=== PATIENT | female | born 1945 | race Caucasian/White ===

== ENCOUNTER → 2020-03-08 11:45 | Outpatient (BNVA) | payer BC, MEDICARE, SELFPAY | PROVIDERS: Family Provider Family Medicine; PCP Family Medicine; Visit Provider Orthopaedic Surgery | DX: M16.11 Unilateral primary osteoarthritis, right hip (principal) | CPT/HCPCS: 73502 ==

== ENCOUNTER 2021-01-14 00:30 | Emergency (ER) | payer MEDICARE, BC, SELFPAY ==
[2021-01-14 00:31] VITALS: PULSE 68; RESP 18; TEMP 36.6; O2SAT 98; BMI 20.9
--- NOTE | 2021-01-14 00:31 | XR_ITS ---
WS: [id number] XR wrist RT min 3V* [id number] REASON FOR EXAM: right wrist injury FINDINGS: Significant decrease in bone density. Horizontal fracture through the distal right radial metaphysis. Anterior angulation the fracture site on the lateral view. Displaced ulnar styloid fracture. Significant arthropathic change in the carpal metacarpal joint of the right thumb with subchondral sc lerosis and narrowing of the joint space. Lateral subluxation of the metacarpal. No soft tissue abnormality. XR/XR wrist RT min 3V* [id number] IMPRESSION: Right wrist fracture as above.
--- NOTE | 2021-01-14 00:31 | XR_ITS ---
WS: [id number] XR elbow RT min 3V* [id number] REASON FOR EXAM: right elbow pain FINDINGS: Joint spaces of the right elbow are intact. No focal bony abnormality. Small soft tissue ossifications adjacent to the medial epicondyle compatible with flexor tendinopathy . XR/XR elbow RT min 3V* [id number] IMPRESSION: No acute abnormality as above.
--- NOTE | 2021-01-14 00:41 | ED_ITS ---
HPI - Fall General: Chief Complaint: Fall Stated Complaint: fall Time Seen by Provider: 01/14/21 00:32 History of Present Illness: HPI Narrative: Patient is a 75-year-old female comes to the ED via EMS with right wrist and right elbow pain after fall. Patient says she was in her house today and she lost her balance and fell landing on her right arm. She states she felt like she broke something in her arm was in a lot of pain and then called EMS. Patient says her pain is an 8 out of 10 currently. Patient denies any loss of consciousness or head injury. Patient denies being on any blood thinners. Associated symptoms-after fall: Denies abdominal pain, chest pain, headache(s), hematuria or neck pain Review of Systems Const: Denies: fever(s), chills or fatigue Eyes: Denies: change in vision or eye discomfort ENMT: Denies: throat pain, odynophagia, nasal discharge or nasal congestion Card: Denies: chest pain, palpitations, edema, swelling of feet/ankles, dyspnea on exertion or orthopnea Resp: Denies: dyspnea, productive cough or non-productive cough GI: Denies: abdominal pain, nausea, vomiting, diarrhea, constipation or hematochezia : Denies: flank pain, dysuria or hematuria Musc: Reports: extremity pain (Right wrist and right elbow pain); Denies: neck pain, back pain or extremity swelling Skin/Breast: Denies: rash or new lesions Neuro: Denies: headache(s), numbness in extremities or weakness in extremities [facility] ED PFSH: Medical History Chronic pain Dyslipidemia Essential hypertension Fatigue Fibromyalgia GERD (gastroesophageal reflux disease) Family History Father Diabetes Sister Diabetes Grandmother Diabetes PATERNAL Other CAD (coronary artery disease) Social History Smoking and tobacco status: never smoked Household members: family Marital status: / Physical Exam Const: COMMON NORMALS: no acute distress, patient oriented x3, healthy appearing and alert GENERAL APPEARANCE: cooperative and comfortable HENMT: COMMON NORMALS: normocephalic HEAD & SCALP: normocephalic MOUTH: Normal oral and palatal mucosa present THROAT: posterior oropharynx normal and uvula midline Neck/C-Spine: COMMON NORMALS: supple GENERAL: Yes normal visual inspection Resp: COMMON NORMALS: normal respiratory effort, No retractions, No use of accessory muscles and clear to auscultation bilaterally AUSCULTATION: clear to auscultation bilaterally Cardio: COMMON NORMALS: regular rate, regular rhythm, S1 normal heart sound present, S2 normal heart sound present, No gallops present (Cardio), No clicks present (Cardio), No murmurs present (Cardio) and Peripheral pulses 2+ throughout RATE: regular rate RHYTHM: regular rhythm HEART SOUNDS: S1 normal heart sound present and S2 normal heart sound present PERIPHERAL PULSES: Peripheral pulses 2+ throughout GI: COMMON NORMALS: Normal to inspection, nondistended, normoactive bowel sounds present, Soft to palpation, non-tender and no masses PALPATION: Yes Soft to palpation : COMMON NORMALS: Yes no CVA tenderness BLADDER/KIDNEY EXAM: Yes no CVA tenderness Back/Pelvis: COMMON NORMALS: no CVA tenderness Extremity: GENERAL: Yes normal exam except as noted RIGHT UPPER EXTREMITY: Yes wrist (Patient presents to the ED in a splint placed by EMS.) Right wrist: Yes inspection (Mild edema but no visible deformity.), Yes palpation (Tender over radial aspect of wrist), Yes ROM (Limited due to pain) and Yes neurovascular exam (Intact, radial pulse 2+ and cap refill is normal.) Neuro: COMMON NORMALS: patient oriented x3 and moves all extremities SENSORIUM/ORIENTATION: Yes alert Skin: GENERAL SKIN EXAM: dry skin Course Vital Signs: Vital signs: Vital Signs Temperature 97.9 F 01/14/21 00:31 Pulse Rate 68 01/14/21 00:31 Respiratory Rate 18 01/14/21 00:31 Pulse Oximetry 98 01/14/21 00:31 MDM - Fall MDM Narrative: Medical decision making narrative: Patient is a 75-year-old female who comes to the ED with right wrist pain after fall. X-ray shows minimally displaced distal radial head fracture. Patient was neurovascular intact in right arm with radial pulse 2+ and cap refill normal. I placed an order with case management for patient to be referred to orthopedic doctor. Patient was placed in sugar tong splint and discharged home with a prescription of [place] 5/325 for pain. Return to ED precautions given. I told patient that c ase investments manager will contact him the next several days to set up an appointment with orthopedic doctor. Patient understood and agreed with plan. Imaging Data^: Xray Ortho: Attestation: I personally reviewed and interpreted this imaging study as follows: My impression: Right wrist x-ray?minimally displaced distal radial head fracture. Right elbow x-ray? no acute fractures or findings. Discharge Plan Discharge Patient Disposition: Home Clinical Impression: Fracture of wrist Qualifiers: Encounter type: initial encounter Fracture type: closed Laterality: right Qualified Code(s): S62.101A - Fracture of unspecified carpal bone, right wrist, initial encounter for closed fracture Condition: Stable Prescriptions: No Action mirtazapine 45 mg tablet 45 mg PO .HS RF: 0 tramadol 50 mg tablet 50 mg PO TID PRNRF: 0 montelukast [Singulair] 10 mg tablet 10 mg PO QDAY RF: 0 dicyclomine 10 mg capsule 10 mg PO BID RF: 0 hyoscyamine sulfate [Levsin] 0.125 mg tablet 0.125 mg PO QID PRN (Reason: dyspepsia) RF: 0 hydralazine 25 mg tablet 25 mg PO .COMPLEX Qty: 240 RF: 5 chlorthalidone 25 mg tablet 25 mg PO DAILY 90 Days Qty: 90 RF: 3 amlodipine 5 mg tablet 5 mg PO DAILY Qty: 90 RF: 3 atenolol 50 mg tablet 50 mg PO BID Qty: 180 RF: 3 Discharge Orders: Discharge ED (Routine); Ordered 01/14/21 Ordered By: Mitul Mendez Referrals: Irving Jha MD [Primary Care Provider] - Discharge Diet: Regular Discharge Activity: Limit activity as instructed Patient Instructions: Wrist Fracture in Adults (ED), Opioid Safety Activity Restrictions/Additional Instructions: Follow-up with medical provider as directed. Case management should be contacting you in the next several days to set up an appointment with orthopedic doctor. Take medications as prescribed. Keep splint on and dry and limit activity with right hand. Return to the ER or your medical provider if condition worsens. Please read and understand discharge instructions. If any questions, please ask. Coding Level of Care Code ED Environmental Protection Specialist for Drew Fwclaudia Exam Comprehensive
[2021-01-14] MEDS: HYDROcodone-acetaminophen 5-325 mg Tablet 1 TAB PO ×2 (00:51→03:03)
--- NOTE | 2021-01-14 02:15 | PC.NURSE ---
Attempted to talk pt into allowing her mother to be admitted since hospice could not see pt tonight and since she is unable to care for pt since she broke her R wrist tonight. Pt is POA for her mother and stated that she wanted them to both go home tonight and will just try it. Explained to pt that it is not a good idea to go home with her mother that it could be dangerous for her mothers care. Pt stated they still want to go home. Called Hospice and they are speaking with pt at this time. Hospice states pt will allow her mother to be admitted into hospital overnight.
[2021-01-14 03:23] VITALS: BP 169/70; PULSE 65; RESP 18; O2SAT 96
--- NOTE | 2021-01-14 09:46 | DCPLANNER ---
manager new product had message to schedule a follow up appointment for patient with ortho. manager new product called the ortho clinic, spoke with Sailaja, gave clinic patients information. manager new product was told that patients information would be printed and reviewed. Clinic will call patient with appointment information.
--- NOTE | 2021-01-18 07:16 | DCPLANNER ---
Patient had a follow up appointment scheduled for 01.17.[address] Stuart at [facility] - patient did attend appointment.
== END 2021-01-14 03:26 | disposition home or self-care (01) ==
PROVIDERS: Emergency Provider Physician Assistant; PCP Family Medicine
DX: S52.121A Displaced fracture of head of right radius, initial encounter for closed fracture (principal); E78.5 Hyperlipidemia, unspecified; I10 Essential (primary) hypertension; W19.XXXA Unspecified fall, initial encounter
CPT/HCPCS: 29125; 73080; 73110; 99283

== ENCOUNTER → 2021-01-17 14:58 | Outpatient (BNVA) | payer MEDICARE, BC, SELFPAY | PROVIDERS: PCP Family Medicine; Visit Provider Specialist | DX: Z01.812 Encounter for preprocedural laboratory examination (principal); Z20.822 Contact with and (suspected) exposure to COVID-19 | CPT/HCPCS: 87635 ==

== ENCOUNTER 2021-01-21 06:06 | Day surgery (SDC) | payer MEDICARE, BC, SELFPAY ==
--- NOTE | 2021-01-20 13:36 | SUR.PREOP ---
patient reports in her past, a healthcare professional told her to only get twighlight type anesthetic
[2021-01-21] VITALS (8 sets, daily range): BP systolic 147–174; BP diastolic 56–122; PULSE 60–68; RESP 17–22; TEMP 36.1–36.6; O2SAT 94–98; BMI 20.5
--- NOTE | 2021-01-21 | XR_ITS ---
WS: [id number] Exam: XR wrist RT 2V [id number] Date/Time of Exam: 01/21/2021 12:00 AM Reason For Exam: ORIF right wrist Intraoperative C-arm images of the right wrist in the AP and lateral projections are submitted for ev aluation. There is volar plate and screw fixation involving a fracture of the distal radius that is stabilized in anatomic alignment for healing. There is a fracture of the ulnar styloid. XR/XR wrist RT 2V [id number] IMPRESSION: 1. Reduction and internal orthopedic fixation involving a fracture of the dista l radius. Alignment is anatomic for healing.
--- NOTE | 2021-01-21 | SCC_ITS ---
Procedure Done: Open reduction internal fixation right comminuted intra- articular angulated distal radius fracture 96.4 seconds of fluoroscopic guidance, for a cumulative dose of 2.03 mGy, was provided to Dr. Stuart by the radiology department. C-arm images of the RIGHT wrist were saved for the patient's permanent record. [facility]
[2021-01-21] MEDS: CELEcoxib 200 mg Capsule 400 MG PO (06:30)
--- NOTE | 2021-01-21 07:00 | W.PM.OPSUD ---
Surgery/Procedure H&P Update DATE OF PROCEDURE: January 21, 2021 DATE H&P PERFORMED: 01/17/21 H&P UPDATE INFORMATION: I have reviewed H&P completed within last 30 days, I have examined patient prior to procedure and No changes to prior documentation PREOP DIAGNOSIS: Comminuted intra-articular displaced right distal radius fracture PLANNED PROCEDURE: Operation Date: 01/21/21 07:45 Proposed Procedures p ORIF right distal radius fracture (77166) S52.501A(Right) - Gaby Stuart MD Related Problem List Diagnoses (1) Closed fracture of distal ends of right radius and ulna: Qualifiers: Encounter type: initial encounter Qualified Code(s): S52.501A - Unspecified fracture of the lower end of right radius, initial encounter for closed fracture; S52.601A - Unspecified fracture of lower end of right ulna, initial encounter for closed fracture
--- NOTE | 2021-01-21 07:02 | W.PM.OPSUD ---
Surgery/Procedure H&P Update DATE OF PROCEDURE: January 21, 2021 DATE H&P PERFORMED: 01/17/21 H&P UPDATE INFORMATION: I have reviewed H&P completed within last 30 days, I have examined patient prior to procedure, No changes to prior documentation and H&P is in [facility] EMR on date indicated PREOP DIAGNOSIS: Comminuted intra-articular displaced right distal radius fracture PLANNED PROCEDURE: Operation Date: 01/21/21 07:45 Proposed Procedures p ORIF right distal radius fracture (87992) S52.501A(Right) - Gaby Stuart MD
[2021-01-21 07:05] LABS: Add Urine Microscopic? NO
[2021-01-21 07:06] LABS: Basophils # 0.1 10^3/uL (0.0-0.1); Basophils % 0.9 %; Eosinophils # 0.1 10^3/uL (0.0-0.8); Eosinophils % 1.1 %; Hematocrit 39.3 % (37.0-47.0); Hemoglobin 13.3 g/dL (11.5-15.3); Lymphocytes # 0.8 10^3/uL (0.8-4.8); Lymphocytes % 9.5 %; Mean Corpuscular HGB Conc 33.8 g/dL (30.0-36.0); Mean Corpuscular Hemoglobin 30.3 pg (28.0-34.0); Mean Corpuscular Volume 89.5 fL (81-99); Mean Platelet Volume 10.6 fL (7.4-10.4); Monocytes # 0.8 10^3/uL (0.2-0.9); Monocytes % 9.5 %; Neutrophils # 6.36 10^3/uL (1.8-7.7); Neutrophils % 78.6 %; Nucleated Red Blood Cells % 0 %; Platelet Count 314 10^3/cmm (130-400); Red Blood Count 4.39 10^6/uL (4.1-5.3); Red Cell Distribution Width 12.6 % (12.1-15.1); White Blood Count 8.1 10^3/uL (4.0-10.0)
[2021-01-21] MEDS: acetaminophen 1,000 MG/100 ML PIGGYBACK 400 MG IV (07:06)
[2021-01-21 07:21] LABS: Bilirubin Urine Neg (Negative); Blood Urine Neg (Negative); Glucose Urine UA Norm (Normal); Ketones Urine Negative (Negative); Leukocyte Esterase Urine Negative (Negative); Nitrate Urine Negative (Negative); Protein Urine Neg (Negative); Specific Gravity, Urine 1.015 (1.005-1.030); Sulfosalicylic Acid Urine Negative (Negative); Urine Appearance Clear (CLEAR); Urine Color Yellow (Yellow); Urobilinogen Urine Norm (Negative); pH Urine 8 (5-7)
[2021-01-21 07:27] LABS: Alanine Aminotransferase 13 U/L (0-33); Albumin Level 4.1 g/dL (3.5-5.2); Alkaline Phosphatase 101 IU/L (35-105); Anion Gap 14.9 (5-19); Aspartate Amino Transferase 17 U/L (0-32); Blood Urea Nitrogen 17 mg/dL (8-23); Calcium 9.2 mg/dL (8.5-10.5); Carbon Dioxide 30 mmol/L (22-29); Chloride 90 mmol/L (98-107); Creatinine Clr Calc Pharmacy 50.7539; Globulin 2.9 g/dL (1.3-4.6); Glucose 127 mg/dL (65-115); Osmolality Calculated 277 mOsm/kg (285-295); Sodium 132 mmol/L (136-145); Total Bilirubin 0.4 mg/dL (0.15-1.2)
--- NOTE | 2021-01-21 07:27 | P.ANESASSM_ITS ---
Pre-Anesthetic Assessment Pre-Anesthetic Assessment: Height/Weight: Height 1.63 m Weight 54.431 kg Temp Pulse Resp BP Pulse Ox 97 F L 68 18 147/80 97 01/21/21 07:16 01/21/21 07:16 01/21/21 07:16 01/21/21 07:16 01/21/21 07:16 Preop Diagnosis: Comminuted intra-articular displaced right distal radius fracture Proposed Procedure: Operation Date: 01/21/21 07:45 Proposed Procedures p ORIF right distal radius fracture (15162) S52.501A(Right) - Gaby Stuatr MD Was Beta Nicholas taken within 24 hours: Yes Was Clonidine taken within 24 hours: N/A Last intake: Intake Last Liquid Date 01/20/21 Last Liquid Time 20:00 Last Solid Date 01/20/21 Last Solid Time 20:00 Social: Social History: No alcohol and No tobacco Exam: Pre-Anes Outpt Exam: alert, oriented x 3, clear to auscultation bilaterally and regular rate & rhythm Airway: Submandibular: WNL Cervical ROM: WNL MP: 2 Dentition: Full History/ROS: No significant history except as noted and No significant complaints Pulmonary: Pulmonary: SOB CV/HEM: CV/HEM: HTN : : None reported Hepatic: Hepatic: None reported GI: GI: GERD Metabolic: Metabolic: None reported Musc/skel: Musc/skel: Fibromyalgia and OA/DJD Anesthetic Plan: ASA status: 2 Anesthesia: Anesthesia Evaluation and MAC Risk of > 500 ml blood loss (7ml/kg in children): No PFSH Anesthesia PFSH: Medical History (Updated 01/18/21 @ 16:14 by Gaby Stuart MD) Chronic pain Dyslipidemia Essential hypertension Fatigue Fibromyalgia GERD (gastroesophageal reflux disease) Family History Father Diabetes Sister Diabetes Grandmother Diabetes PATERNAL Other CAD (coronary artery disease) Social History Smoking and tobacco status: never smoked Household members: family Marital status: / Data Anesthesia CBC & Chem 7: 01/21/21 06:58 01/21/21 06:58 Other Labs: Laboratory Results - last 48 hr 01/21/21 01/21/21 06:40 06:58 WBC 8.1 RBC 4.39 Hgb 13.3 Hct 39.3 MCV 89.5 MCH 30.3 MCHC 33.8 RDW 12.6 Plt Count 314 MPV 10.6 H Neut % (Auto) 78.6 Lymph % (Auto) 9.5 [place] % (Auto) 9.5 Eos % (Auto) 1.1 Baso % (Auto) 0.9 Neut # (Auto) 6.36 Lymph # (Auto) 0.8 [place] # (Auto) 0.8 Eos # (Auto) 0.1 Baso # (Auto) 0.1 Nucleated RBC % (auto) 0 Nucleated RBCs # 0.0 Urine Color Yellow Urine Appearance Clear Urine pH 8 H Ur Specific [place] 1.015 Urine Protein Neg Urine Glucose (UA) Norm Urine Ketones Negative Urine Blood Neg Urine Nitrate Negative Urine Bilirubin Neg Prot Sulfosalicylic Acd Negative Urine Urobilinogen Norm Ur Leukocyte Esterase Negative Cardiac Studies: No Data to Display
[2021-01-21] MEDS: sodium chloride 0.9% 1,000 ML 30 ML IV (07:34)
[2021-01-21 07:45] LABS: Potassium 2.9 mmol/L (3.5-5.1)
--- NOTE | 2021-01-21 07:52 | ANES.PROC ---
Anesthesia Procedures Procedure/Date: 01/21/21 Nerve Block ^: Nerve Block 1: Main Anesthesia: general anesthesia Time Out Performed: Yes Consent: requested by attending/covering physician, from patient, from other, risks and benefits reviewed and patient agrees to proceed Nerve block location: axillary (R) Anesthesia monitors applied: pulse oximetry, EKG, BP cuff and oxygen Anesthetic Used: with bicarb and with decadron (4 mg) Amount of anesthesia used (mL): 30 Ultrasound used to: recognize landmarks and visualize and ID brachial plexus Nerve Stimulator Used?: No Interscalene/Femoral BLK: 2 stimuplex 22 g needle used for position and inplane approach, visualize local anesthetic spread and no vascular puncture identified Injection: neg aspiration of heme Complications: none and pain with procedure Additional Comments: Patient tolerated needle entry and needle movement poorly, no pain with injections
[2021-01-21] MEDS: midazolam 1 mg/mL INJ 5 ML 5 MG IVP (07:55)
[2021-01-21] MEDS: ceFAZolin 1,000 mg SDV 1000 MG IRRIGATION (08:18)
--- NOTE | 2021-01-21 09:39 | P.OP_ITS ---
Operative Report Date of procedure: January 21, 2021 Pre-op Diagnosis: Comminuted intra-articular displaced right distal radius fracture Post-op diagnosis: same Post-op Findings: Comminuted very unstable right intra-articular distal radius fracture Procedure Done: Open reduction internal fixation right comminuted intra- articular angulated distal radius fracture Implants: Kevon extra short narrow plate for the right volar radius Specimens removed/disposition: None Pathology: none sent Surgeon: Gaby Stuart Chemical Engineering Professor: [facility] operating room technicians Anesthesia: General (Per LMA with axillary block supplementing) Estimated blood loss (mL): 2 Tourniquet time (min): 53 Tourniquet time: At 250 mmHg IV fluids (mL): 400 Urine output (mL): 0 Urine output: No [place] Complications: None Findings: Very comminuted, angulated, impacted, displaced unstable right distal radius fracture Condition: stable Disposition: PACU (Then discharge from outpatient surgery to home) Brief History: This 75-year-old woman presented with an impacted, angulated displaced, intra- articular comminuted right distal radius fracture. Discussion was undertaken with the patient regarding appropriate treatment in the form of open reduction internal fixation. After the discussion, we both agreed the patient would benefit from open reduction internal fixation. Therefore, following the discussion, questions were answered and surgery was scheduled for the patient. Procedure: Patient was brought to the operating theater, and after undergoing adequate general anesthesia per LMA with supplemental axillary block, the patient's right upper extremity was prepped and draped in usual fashion utilizing DuraPrep. The patient had a tourniquet placed high on the arm prior to prepping and draping. Following prepping and draping, the arm was exsanguinated and the tourniquet was elevated. Total tourniquet time was 53 minutes at 250 mmHg. Prior to co mmencement of the surgical procedure, a surgical pause was performed. At the time of the surgical pause, we confirmed the site and side of surgery as well as the patient's identity and preoperative surgical markings. We also confirmed availability of equipment and appropriate preoperative IV antibiotics which was Ancef 2 g. Fluoroscopy was also brought into position so that we could visualize the fracture and hardware throughout the surgical procedure. The fracture was evaluated prior to tourniquet placement. Following elevation of the tourniquet as well as the surgical pause, an incision was made along the palmaris longus and continued down onto the volar surface of the radius. Care was taken to avoid injury throughout the surgical procedure to the median nerve as well as to the radial artery. The flexor carpi radialis was retracted medially. We were able to essentially elevate the sheath of the flexor carpi radialis. and I was able to place my finger directly onto the distal radius. For the most part, the patient did her own dissection at the time of her injury. Soft tissues were elevated off the distal radius to allow access to the fracture and also to the volar aspect of the distal radial shaft. Reduction required manipulation with a Burns and Langenbeck elevator due to impaction of the fracture. It was difficult to maintain an anatomic reduction during plate placement secondary to the gross instability. There was significant dorsal displacement of the distal fragment of the radius. Fluoroscopy was used to determine whether or not the reduction was appropriate. We were able to reduce the fracture nearly anatomically, but there was significant comminution. We then evaluated the plate and chose the Kevon extra short narrow right volar distal radius plate. The plate was attached proximally and distally without difficulty. A combination of locking and one nonlocking screws were utilized to attach the plate. We had excellent fixation and reduction of the fracture. Fluoroscopy was utilized during the procedure. Once the plate was fully attached, we had a near anatomic position to the distal radius and the distal radius was out to length. Being satisfied with position, the area was copiously irrigated. There were no fascial tissues to close, and therefore we closed the subcutaneous tissues with a combination of 2-0 and 3-0 interrupted Monocryl. Skin was closed in a subcuticular fashion with 3-0 Monocryl. This was followed by steri-strips, Xeroform gauze, 4 x 4's, and soft roll. A volar splint was placed into position over soft roll and this was wrapped in place with an Steve wrap. The tourniquet was released after 53 minutes. There were no complications. There were no specimens. Patient was returned to recovery room in a satisfactory condition. She was subsequently discharged home. She will follow-up with me as scheduled in her discharge instructions. Associated Problem List Diagnoses (1) Closed fracture of distal ends of right radius and ulna: Qualifiers: Encounter type: initial encounter Qualified Code(s): S52.501A - Unspecified fracture of the lower end of right radius, initial encounter for closed fracture; S52.601A - Unspecified fracture of lower end of right ulna, initial encounter for closed fracture
--- NOTE | 2021-01-21 10:50 | PC.NURSE ---
spoke with dr. Pathak concerning potassium. pt instructed to take potassium that she has at home.
--- NOTE | 2021-01-21 13:37 | ANE.PACU2 ---
Inpatient post-anesthesia follow up: Airway intact: Yes Vital signs: Temperature 97.3 F Pulse Rate 62 Respiratory Rate 18 Blood Pressure 155/63 Pulse Oximetry 96 Oxygen Delivery Me thod Room Air Oxygen Flow Rate 8 Fraction of Inspir ed Oxygen Hydration adequate: Yes Nausea and vomiting: No Pain level: 2 Mental status: Baseline
== END 2021-01-21 10:49 | disposition home or self-care (01) ==
PROVIDERS: PCP Family Medicine; Visit Provider Specialist
PROC: (CPT 25609; principal; 2021-01-21 07:45)
DX: S52.571A Other intraarticular fracture of lower end of right radius, initial encounter for closed fracture (principal); W19.XXXA Unspecified fall, initial encounter; Y92.009 Unspecified place in unspecified non-institutional (private) residence as the place of occurrence of the external cause; I10 Essential (primary) hypertension; K21.9 Gastro-esophageal reflux disease without esophagitis; M79.7 Fibromyalgia; M19.90 Unspecified osteoarthritis, unspecified site; E78.5 Hyperlipidemia, unspecified; Z83.3 Family history of diabetes mellitus; Z82.49 Family history of ischemic heart disease and other diseases of the circulatory system; G89.29 Other chronic pain; Z79.891 Long term (current) use of opiate analgesic
CPT/HCPCS: 25609; 36415; 64417; 73100; 76000; 76942; 80053; 81003; 85025; 96365; C1713; J0690; J1100; J2250; J2405; J2704; J2795; J3010; J3490; J7030

== ENCOUNTER → 2021-02-07 15:13 | Outpatient (BNVA) | payer MEDICARE, BC, SELFPAY | PROVIDERS: PCP Family Medicine; Visit Provider Specialist | DX: S52.601A Unspecified fracture of lower end of right ulna, initial encounter for closed fracture (principal); S52.501A Unspecified fracture of the lower end of right radius, initial encounter for closed fracture; X58.XXXA Exposure to other specified factors, initial encounter; Z46.89 Encounter for fitting and adjustment of other specified devices; S52.591D Other fractures of lower end of right radius, subsequent encounter for closed fracture with routine healing; X58.XXXD Exposure to other specified factors, subsequent encounter | CPT/HCPCS: 73110; 97760; L3982 ==

== ENCOUNTER 2021-02-07 16:36 | Outpatient (CLI) | payer MEDICARE, BC, SELFPAY | END 2021-02-07 16:37 | disposition home or self-care (01) | LOC: SPT 16:37 | PROVIDERS: PCP Family Medicine; Visit Provider Specialist | DX: Z46.89 Encounter for fitting and adjustment of other specified devices (principal); S52.591D Other fractures of lower end of right radius, subsequent encounter for closed fracture with routine healing; S52.691D Other fracture of lower end of right ulna, subsequent encounter for closed fracture with routine healing; X58.XXXD Exposure to other specified factors, subsequent encounter | CPT/HCPCS: 97760; L3982 ==

== ENCOUNTER → 2021-02-23 14:22 | Outpatient (BNVA) | payer MEDICARE, BC, SELFPAY | PROVIDERS: PCP Family Medicine; Visit Provider Specialist | DX: S52.501D Unspecified fracture of the lower end of right radius, subsequent encounter for closed fracture with routine healing (principal); S52.601D Unspecified fracture of lower end of right ulna, subsequent encounter for closed fracture with routine healing; X58.XXXD Exposure to other specified factors, subsequent encounter | CPT/HCPCS: 73110 ==

== ENCOUNTER 2021-03-01 12:43 | Outpatient (RCR) | payer MEDICARE, BC, SELFPAY | END 2021-03-28 23:59 | disposition home or self-care (01) | LOC: SOT 12:43 | PROVIDERS: PCP Nurse Practitioner Family; Referring Provider Specialist; Visit Provider Specialist | DX: S52.501D Unspecified fracture of the lower end of right radius, subsequent encounter for closed fracture with routine healing (principal); Z98.890 Other specified postprocedural states; X58.XXXD Exposure to other specified factors, subsequent encounter | CPT/HCPCS: 97110; 97140; 97166; 97530 ==

== ENCOUNTER → 2021-03-23 13:04 | Outpatient (BNVA) | payer MEDICARE, BC, SELFPAY | PROVIDERS: PCP Nurse Practitioner Family; Visit Provider Specialist | DX: S52.601D Unspecified fracture of lower end of right ulna, subsequent encounter for closed fracture with routine healing (principal); S52.501D Unspecified fracture of the lower end of right radius, subsequent encounter for closed fracture with routine healing; X58.XXXD Exposure to other specified factors, subsequent encounter; Z47.89 Encounter for other orthopedic aftercare | CPT/HCPCS: 73110 ==

== ENCOUNTER 2021-03-29 06:00 | Outpatient (RCR) | payer MEDICARE, BC, SELFPAY | END 2021-04-27 23:59 | disposition home or self-care (01) | LOC: SOT 06:00 | PROVIDERS: PCP Nurse Practitioner Family; Referring Provider Specialist; Visit Provider Specialist | DX: S52.501S Unspecified fracture of the lower end of right radius, sequela (principal); X58.XXXS Exposure to other specified factors, sequela | CPT/HCPCS: 97110; 97140 ==

== ENCOUNTER → 2021-04-27 11:24 | Outpatient (BNVA) | payer MEDICARE, BC, SELFPAY | PROVIDERS: PCP Nurse Practitioner Family; Visit Provider Specialist | DX: M16.11 Unilateral primary osteoarthritis, right hip (principal) | CPT/HCPCS: 73502 ==

== ENCOUNTER 2021-04-28 06:00 | Outpatient (RCR) | payer MEDICARE, BC, SELFPAY | END 2021-05-28 23:59 | disposition home or self-care (01) | LOC: SOT 06:00 | PROVIDERS: PCP Nurse Practitioner Family; Referring Provider Specialist; Visit Provider Specialist | DX: S52.91XD Unspecified fracture of right forearm, subsequent encounter for closed fracture with routine healing (principal); X58.XXXD Exposure to other specified factors, subsequent encounter | CPT/HCPCS: 97110; L3924 ==

== ENCOUNTER 2021-05-12 12:45 | Outpatient (CLI) | payer MEDICARE, BC, SELFPAY ==
--- NOTE | 2021-05-12 13:30 | USCV_ITS ---
Jana Rosa Age: 76 Gender: F : 1945 Exam Date: 05/12/2021 13:17 Ordering Phys: Richard Magdaleno M.D ([email or web address]) Technologist: Celine Kenney Exam Location: [facility] [place] Indication: SOB BP: 128 / 79 HR: 58 Rhythm: Sinus Technical Quality: Adequate MEASUREMENTS (Male / Female) Normal Values 2D ECHO LV Diastolic Diameter PLAX 4.1 cm 4.2 - 5.9 / 3.9 - 5.3 cm LV Systolic Diameter PLAX 2.9 cm IVS Diastolic Thickness 1.3 cm 0.6 - 1.0 / 0.6 - 0.9 cm IVS Systolic Thickness 1.2 cm LVPW Diastolic Thickness 0.7 cm 0.6 - 1.0 / 0.6 - 0.9 cm LVPW Systolic Thickness 1.0 cm LVOT Diameter 2.0 cm LV Ejection Fraction 2D Teich 56.2 % LV Ejection Fraction MOD 2C 75.6 % LV Ejection Fraction 2C AL 76.6 % LA Diameter 2.9 cm LA Width 3.5 cm LA Height 4.9 cm RA Width 3.1 cm RA Height 3.3 cm Aorta at Sinotubular Diameter 2.9 cm M-MODE LV Diastolic Diameter MM 5.1 cm 4.2 - 5.9 / 3.9 - 5.3 cm LV Systolic Diameter MM 3.2 cm LV Ejection Fraction MM Teich 65.3 % IVS Diastolic Thickness MM 0.8 cm 0.6 - 1.0 / 0.6 - 0.9 cm IVS Systolic Thickness MM 0.6 cm LVPW Diastolic Thickness MM 0.8 cm 0.6 - 1.0 / 0.6 - 0.9 cm LVPW Systolic Thickness MM 1.6 cm Aortic Annulus Diameter 2.2 cm LA Ao Ratio MM 1.5 MV E Point Septal Separation 0.7 cm DOPPLER AV Peak Velocity 144.0 cm/s LVOT Peak Velocity 99.0 cm/s AV Area Cont Eq vti 2.3 cm squared AV Area Cont Eq pk 2.1 cm squared MV Peak Velocity 118.0 cm/s MV Area PHT 2.7 cm squared Mitral E to A Ratio 1.1 MV E' Velocity 59.0 cm/s Mitral E to MV E' Ratio 12.4 Mitral E to LV E' Lateral Ratio 11.3 Mitral E to LV E' Septal Ratio 13.9 TR Peak Velocity 204.4 cm/s TR Peak Gradient 16.7 mmHg TR Mean Velocity 165.2 cm/s TR Mean Gradient 11.9 mmHg TR Velocity Time Integral 61.3 cm Right Atrial Pressure 3.0 mmHg Pulmonary Artery Systolic Pressu 19.7 mmHg PV Peak Velocity 78.0 cm/s RV Acceleration Time 0.1 s RV Ejection Time 0.3 s RV AcT/ET 0.4 FINDINGS Left Ventricle Normal left ventricular size, systolic function and wall thickness, with no regional wall motion abnormalities. Normal left ventricular wall thickness. Normal diastolic filling pattern. Right Ventricle The right ventricle is normal in size and function. Right Atrium The right atrium is normal in size. Left Atrium The left atrium is normal in size. Mitral Valve Structurally normal mitral valve without significant stenosis or prolapse. There is mild mitral regurgitation. Aortic Valve Structurally normal aortic valve without significant sclerosis or stenosis. There is no aortic regurgitation. Tricuspid Valve Structurally normal tricuspid valve without significant stenosis. Trace tricuspid regurgitation. Insufficient TR jet to calculate RVSP Pulmonic Valve Structurally normal pulmonic valve without significant stenosis. There is no pulmonic regurgitation. Pericardium Normal pericardium without effusion. Aorta Normal ascending aorta dimension. CONCLUSIONS LV systolic function is normal with EF of 55-60% Diastolic function is normal Mild mitral regurgitation Mild tricuspid regurgitation Compared to prior echocardiogram from 2013, mild mitral regurgitation is now seen, otherwise no significant changes Richard Magdaleno MD (Electronically Signed) Final Date: 23 May 2021 09:10 S
== END 2021-05-12 12:46 | disposition home or self-care (01) ==
PROVIDERS: PCP Nurse Practitioner Family; Visit Provider Internal Medicine
DX: R06.02 Shortness of breath (principal); I08.1 Rheumatic disorders of both mitral and tricuspid valves
CPT/HCPCS: 93306

== ENCOUNTER → 2021-05-17 13:16 | Outpatient (BNVA) | payer MEDICARE, BC, SELFPAY | PROVIDERS: PCP Nurse Practitioner Family; Visit Provider Orthopaedic Surgery | DX: M54.5 Low back pain (principal); M16.0 Bilateral primary osteoarthritis of hip | CPT/HCPCS: 72070; 72110 ==

== ENCOUNTER → 2021-05-26 13:00 | Outpatient (BNVA) | payer MEDICARE, BC, SELFPAY | PROVIDERS: PCP Nurse Practitioner Family; Referring Provider Orthopaedic Surgery; Visit Provider Anesthesiology Pain Medicine | DX: M48.062 Spinal stenosis, lumbar region with neurogenic claudication (principal); M51.36 Other intervertebral disc degeneration, lumbar region; M47.816 Spondylosis without myelopathy or radiculopathy, lumbar region; M16.11 Unilateral primary osteoarthritis, right hip; Z79.891 Long term (current) use of opiate analgesic | CPT/HCPCS: 99204 ==

== ENCOUNTER 2022-01-20 13:30 | Outpatient (CLI) | payer MEDICARE, BC, OTHER, SELFPAY ==
--- NOTE | 2022-01-20 13:55 | XR_ITS ---
WS: [id number] DEXA (DUAL ENERGY X-RAY ABSORPTIOMETRY) Bone mineral density was performed using a [employer] machine. HISTORY: AGE RELATED OSTEOPOROSIS W/O CURRENT PATHOLOGICAL FX COMPARISON: 09/05/2018 Lumbar spine BMD (L1-L4): 1.130 g/cm2 T score: -0.4 Z score: 1.6 Total hip BMD: Left: 0.823 (g/cm2). T score: -1.5 Z score: 0.6 10 year probability of a major osteoporotic fracture is 26%. XR/XR DEXA axial skeleton* [id number] IMPRESSION: OSTEOPENIA based upon the WHO classification for females.
== END 2022-01-20 13:31 | disposition home or self-care (01) ==
LOC: RAD 13:42
PROVIDERS: PCP Nurse Practitioner Family; Visit Provider Nurse Practitioner Family
DX: M81.0 Age-related osteoporosis without current pathological fracture (principal); M85.80 Other specified disorders of bone density and structure, unspecified site
CPT/HCPCS: 77080

== ENCOUNTER → 2022-04-04 13:06 | Outpatient (BNVA) | payer MEDICARE, BC, OTHER, SELFPAY | PROVIDERS: PCP Nurse Practitioner Family; Visit Provider Internal Medicine | DX: I10 Essential (primary) hypertension (principal); E78.5 Hyperlipidemia, unspecified | CPT/HCPCS: 99213; 99214 ==

== ENCOUNTER 2022-05-05 14:57 | Outpatient (CLI) | payer MEDICARE, BC, SELFPAY ==
--- NOTE | 2022-05-05 15:03 | US_ITS ---
WS: [id number] THYROID ULTRASOUND HISTORY: R POSTERIOR CERVICAL CHAIN MASS 2CM X 1CM COMPARISON: None available. Right lobe: 1.6 cm x 1.5 cm x 3.4 cm (w x ap x l). Volume: 4.2 cm3. Normal size and echotexture. No significant are dominant nodules are present. Left lobe: 1.3 cm x 1.4 cm x 2.8 cm (w x ap x l). Volume: 2.5 cm3. Normal size and echotexture. No significant or dominant nodules are present. Isthmus: 0.3 cm. US/US thyroid [id number] IMPRESSION: Normal thyroid ultrasound.
== END 2022-05-05 14:58 | disposition home or self-care (01) ==
PROVIDERS: PCP Nurse Practitioner Family; Visit Provider Nurse Practitioner Family
DX: R22.1 Localized swelling, mass and lump, neck (principal)
CPT/HCPCS: 76536

== ENCOUNTER → 2022-10-09 13:31 | Outpatient (BNVA) | payer MEDICARE, BC, SELFPAY | PROVIDERS: PCP Physician Assistant; Visit Provider Internal Medicine | DX: I10 Essential (primary) hypertension (principal); E78.5 Hyperlipidemia, unspecified | CPT/HCPCS: 99214 ==

== ENCOUNTER 2023-03-15 12:08 | Outpatient (CLI) | payer MEDICARE, BC, SELFPAY ==
--- NOTE | 2023-03-15 12:27 | USCV_ITS ---
Jana Rosa Age: 78 Gender: F : 1945 Exam Date: 03/15/2023 13:11 Ordering Phys: Joana Randolph Technologist: CT Exam Location: [facility] [place] Indication: claudication Risk Factors: Previous Vascular Surgery: RIGHT LEFT BP: 150.0 / 75.00 BP: 154.0/ 75.00 0 0 Waveform Velocity (cm/s) Velocity (cm/s) Waveform Triphasic 140.1 Iliac Prox 123.1 Biphasic Triphasic 131.7 Iliac Mid 123.1 Biphasic Triphasic Iliac Distal Biphasic 144.2 116.0 Triphasic 160.4 JOURNALISM INSTRUCTOR 91.2 Biphasic Biphasic 139.4 SFA Prox 127.4 Biphasic Biphasic 108.4 SFA Mid 108.4 Biphasic Biphasic 100.7 SFA Dist 102.8 Biphasic Biphasic 90.4 POP 65.1 Biphasic Biphasic 64.8 HEATING UNIT INSTALLER 77.9 Biphasic Biphasic 75.4 DPA 75.4 Biphasic 1.1 JORDAN 1.0 FINDINGS Resting JORDAN 1.1 on the right and 1.0 on the left Normal Doppler flow velocities and near normal Doppler waveforms bilaterally Minimal plaques in the iliac and femoral arteries bilaterally CONCLUSIONS 1. Normal resting ABIs bilaterally 2. Minimal plaques in the iliac and femoral arteries bilaterally 3. No significant arterial obstruction, based on the above findings Dr Marvin Ghosh MD [facility] (Electronically Signed) Final Date: 16 Mar 2023 17:11 S
== END 2023-03-15 12:09 | disposition home or self-care (01) ==
PROVIDERS: PCP Physician Assistant; Visit Provider Physician Assistant
DX: I73.9 Peripheral vascular disease, unspecified (principal)
CPT/HCPCS: 93925

== ENCOUNTER → 2023-04-16 13:42 | Outpatient (BNVA) | payer MEDICARE, BC, SELFPAY | PROVIDERS: PCP Physician Assistant; Visit Provider Internal Medicine | DX: I10 Essential (primary) hypertension (principal); E78.5 Hyperlipidemia, unspecified | CPT/HCPCS: 99214 ==

== ENCOUNTER 2023-07-11 10:45 | Outpatient (CLI) | payer MEDICARE, BC, SELFPAY ==
--- NOTE | 2023-07-11 11:01 | CT_ITS ---
WS: [id number] CT ABDOMEN AND PELVIS WITH CONTRAST HISTORY: GENERALIZED ABDOMINAL PAIN TECHNIQUE: Imaging performed of the abdomen and pelvis with IV contrast. Single phase imaging of the abdomen. Coronal and sagittal reformats are submitted. All CT scans at [facility] use at [address] one of these dose optimization techniques: automated exposure control; mA and/or kV adjustment per patient size (includes targeted exams where dose is matched to clinical indication); or iterative re construction. IV CONTRAST: Omnipaque 350; 100 mL IV. Oral contrast: Yes DLP: 321.39 mGy.cm COMPARISON: 06/08/2008 Lower thorax: Mild pulmonary hyperexpansion at the lung bases. No pneumonia. Heart is normal size. No hiatal hernia. Liver/biliary system: Normal size with no intrahepatic dilatation. Gallbladder: Normal. No gallstones or wall thickening. No pericholecystic fluid. Pancreas: Normal size pancreas and pancreatic duct. No adjacent inflammation. Spleen: Normal size spleen. No mass or infarct. Small cyst in the inferior spleen unchanged since 200 8. Adrenal glands: Normal. Right kidney: Mild cortical thinning and scarring lower pole. No obstruction or solid mass. Left kidney: Small cortical cyst 8 mm. No obstruction or mass. Aorta: Mild atherosclerosis with no aneurysm. Moderate calcification at the origin of the celiac axis and SMA. Lymphadenopathy: None. Free fluid: None. GI tract: Increase food products or debris within the stomach. May be a small developing bezoar. No s mall bowel obstruction. Marked diffuse constipation and fecal retention. Normal appendix. Moderate di verticular burden in the distal colon without acute diverticulitis. Abdominal wall: Unremarkable abdominal wall. No hernia. Pelvis: No free fluid or adenopathy. Normal urinary bladder. Atrophic uterus. Bones: Increase in the lumbar lordosis. L4 anterolisthesis by 5 mm. L2 retrolisthesis by 3 mm. Prior RIGHT hip arthroplasty. Severe degenerative joint disease LEFT hip. IMPRESSION: 1. Large amount of debris in the stomach. This may be a developing bezoar or food remnants. Upper en doscopy may be of benefit. 2. No adenopathy or ascites. No renal obstruction. 3. Marked diffuse constipation. 4. Mild atherosclerosis aorta
[2023-07-11] MEDS: iohexol 350 mg/mL 500 mL Btl (per mL) PO (11:59)
[2023-07-11] MEDS: iohexol 350 mg/mL 500 mL Btl (per mL) IV (12:21)
== END 2023-07-11 10:46 | disposition home or self-care (01) ==
PROVIDERS: PCP Physician Assistant; Visit Provider Physician Assistant
DX: K59.00 Constipation, unspecified (principal); R10.84 Generalized abdominal pain; Z78.0 Asymptomatic menopausal state; I70.0 Atherosclerosis of aorta
CPT/HCPCS: 74177; Q9967

== ENCOUNTER → 2023-10-16 12:33 | Outpatient (BNVA) | payer MEDICARE, BC, SELFPAY | PROVIDERS: PCP Physician Assistant; Visit Provider Internal Medicine | DX: I10 Essential (primary) hypertension (principal); E78.5 Hyperlipidemia, unspecified | CPT/HCPCS: 99214 ==

== ENCOUNTER → 2024-07-15 12:36 | Outpatient (BNVA) | payer MEDICARE, BC, SELFPAY | PROVIDERS: PCP Physician Assistant; Visit Provider Internal Medicine | DX: I10 Essential (primary) hypertension (principal); E78.5 Hyperlipidemia, unspecified | CPT/HCPCS: 99213 ==

== ENCOUNTER 2024-12-24 14:21 | Outpatient (CLI) | payer MEDICARE, BC, SELFPAY ==
--- NOTE | 2024-12-24 14:23 | XR_ITS ---
WS: [email or web address] SCREENING DEXA SCAN [employer] CLINICAL INFORMATION: Z78.0 Post-menopausal COMPARISON: 2021 FINDINGS: The L1-L4 bone mineral density measures 1.258 g/cm2. This corresponds to a T score score of 0.6 and Z score of 2.5. Left femoral neck bone mineral density measures 0.837 (g/cm2). This corresponds to a T score of -1.4 (no units) and Z score of 0.8 (no units). . XR/XR DEXA axial skeleton* [id number] IMPRESSION: Normal bone mineralization lumbar spine. Osteopenia LEFT femoral neck. Patient's FRAX calculated 10 year probability for major osteoporotic fracture i s 24.4% and osteoporotic hip fracture is 11.1%. Bone mineral density lumbar spine increased 11.3% Bone mineral density LEFT femoral neck increased 1.7%
== END 2024-12-24 14:22 | disposition home or self-care (01) ==
PROVIDERS: PCP Physician Assistant; Visit Provider Physician Assistant
DX: Z78.0 Asymptomatic menopausal state (principal); M85.88 Other specified disorders of bone density and structure, other site
CPT/HCPCS: 77080

== ENCOUNTER 2025-01-22 17:04 | Inpatient (IN) | payer MEDICARE, BC, SELFPAY ==
[2025-01-22] VITALS (12 sets, daily range): BP systolic 154–186; BP diastolic 58–89; PULSE 55–74; RESP 12–21; TEMP 36.4–36.6; O2SAT 98–99; BMI 24.3; BMI 25.5
--- NOTE | 2025-01-22 18:03 | CTR_ITS ---
PROCEDURE INFORMATION: Exam: CT Abdomen And Pelvis With Contrast Exam date and time: 01/22/2025 6:51 PM Age: 79 years old Clinical indication: Abdominal pain; Generalized; Additional info: Abd pain, distention TECHNIQUE: Imaging protocol: Computed tomography of the abdomen and pelvis with contrast. Radiation optimization: All CT scans at this facility use at least one of these dose optimization techniques: automated exposure control; mA and/or kV adjustment per patient size (includes targeted exams where dose is matched to clinical indication); or iterative reconstruction. Contrast material: OMNIPAQUE 350; Contrast volume: 100 ml; Contrast route: INTRAVENOUS (IV); COMPARISON: CT abdomen pelvis w con* [id number] 07/11/2023 12:14 PM RADIATION DOSE METRICS: Total DLP (mGy-cm): 468.93 FINDINGS: Lungs: Bibasilar atelectasis and/or scarring. Pleural spaces: Trace left pleural effusion and questionable trace right pleural effusion. Heart: Heart size is within normal limits. There is no pericardial effusion or pericardial thickening. Liver: The liver is normal. No hepatic masses are identified. Gallbladder and biliary ducts: Mildly distended gallbladder. No gallbladder wall thickening, gallstones, or pericholecystic inflammatory change identified. Pancreas: The pancreas is normal. Spleen: Stable small posterior splenic hypodensity likely small cyst. Stable splenic granuloma. The spleen is otherwise normal. Adrenal glands: The adrenal glands are normal. Kidneys and ureters: There is normal enhancement of the kidneys. No renal calcifications are identified. There is no hydronephrosis. There are bilateral subcentimeter renal low-density lesions which are too small for accurate characterization, likely representing simple cysts. Stomach and bowel: Mild colonic diverticulosis without diverticulitis. Moderate retained colonic stool. There is no large or small bowel obstruction. There is no evidence of bowel wall thickening. Appendix: A normal appendix is identified. Intraperitoneal space: No inflammatory changes are identified. There is no free fluid or fluid collection seen. There is no pneumoperitoneum. Vasculature: Atherosclerotic calcifications of the aorta are present. No aneurysm is identified. Lymph nodes: Small soft tissue densities, likely lymph nodes adjacent to the posterior rectum are nonspecific and appears stable. No enlarged lymph nodes are identified. Urinary bladder: Moderately distended urinary bladder. Reproductive: The uterus is present. Bones/joints: No acute osseous abnormalities are seen. Right hip arthroplasty. Soft tissues: Tiny periumbilical hernia containing only fat. CT/CT abdomen pelvis w con* [id number] IMPRESSION: 1. No acute intra-abdominal or pelvic process. 2. Other nonemergent findings above. COMMENTS: Consistent with the [employer]'s Incidental Findings Committee white paper (J Am Elizabeth Radiol 2018): Any incidental renal lesion less than 1 cm or classified as too small to characterize, or any incidental cystic renal lesion characterized as simple-appearing, is likely benign. No follow-up imaging is recommended for these lesions per consensus recommendations based on imaging criteria.
--- NOTE | 2025-01-22 18:08 | W.ED.ABDPA2 ---
HPI - Abdominal Pain General: Chief Complaint: Abdominal Pain Stated Complaint: Agustín called, abd pain abnormal labs Time Seen by Provider: 01/22/25 17:40 Source: patient Mode of arrival: ambulatory Limitations: no limitations History of Present Illness: 79yo female presents from the clinic for evaluation of hyponatremia. Patient reports her sodium and her creatinine were off. Patient does complain of abdominal pain and distention. States that she had been constipated, but drink some magnesium citrate and has had diarrhea since last night. Patient reports she has no family with her. Patient does seem to be somewhat confused, but does have bouts of clarity. Patient reports that she has no family in the area and that her son and daughter live in [place]. Patient's denies cough, congestion, vomiting, difficulty breathing, shortness of breath, chest pain, any other concerns at this time. Associated Symptoms: Reports bloating and diarrhea; Denies chills, dysuria, fever(s) and vomiting Related Data Home Medications ?Medication ?Instructions ?Recorded ?Confirmed dicyclomine 10 mg capsule 10 mg PO BID 11/13/19 07/15/24 mirtazapine 45 mg tablet 45 mg PO .HS 11/13/19 07/15/24 montelukast 10 mg tablet 10 mg PO QDAY 11/13/19 07/15/24 (Singulair) tramadol 50 mg tablet 50 mg PO TID PRN pain 11/13/19 07/15/24 Held on 01/21/21. Instructions: Resume on 02/04/21. Hydrocodone or tramadol, not both. hyoscyamine sulfate 0.125 mg 0.125 mg PO QID PRN dyspepsia 03/09/20 07/15/24 tablet (Levsin) gabapentin 100 mg capsule 100 mg PO DAILY 10/09/22 07/15/24 Previous Rx's ?Medication ?Instructions ?Recorded COCK UP SPLINT #1 ea 02/07/21 celecoxib 200 mg capsule (Celebrex) 200 mg PO DAILY #30 caps 02/23/21 [facility] brace #2 ea 04/27/21 metaxalone 800 mg tablet 800 mg PO TID PRN Pain 30 days #60 05/26/21 tabs hydralazine 25 mg tablet 25 mg PO DIRECTED #240 tabs 08/26/24 atenolol 50 mg tablet See Rx Instructions .Route 09/01/24 .COMPLEX #180 tabs chlorthalidone 25 mg tablet See Rx Instructions .Route 11/13/24 .COMPLEX #90 tabs Allergies Allergy/AdvReac Type Severity Reaction Status Date / Time prochlorperazine (From Allergy Unknown Unknown Verified 10/16/23 12:59 Compazine) Tetracyclines Allergy Unknown Verified 10/16/23 12:59 Review of Systems Const: Denies: fever(s) or chills Card: Denies: chest pain Resp: Denies: dyspnea GI: Reports: diarrhea and bloating; Denies: vomiting : Denies: difficulty voiding or dysuria PFSH ED PFSH: Medical History Dyslipidemia Fatigue Chronic pain Essential hypertension Fibromyalgia GERD (gastroesophageal reflux disease) Family History Father Diabetes Sister Diabetes Grandmother Diabetes PATERNAL Other CAD (coronary artery disease) Social History Smoking and tobacco/nicotine status: never used tobacco/nicotine Alcohol intake: never Substance/Drug Use: never Household members: family Marital status: / Physical Exam Const: COMMON NORMALS: no acute distress, healthy appearing and alert EXAM LIMITATIONS: altered mental status (intermittent confusion) GENERAL APPEARANCE: cooperative ORIENTATION/CONSCIOUSNESS: Yes awake OTHER: Patient is sitting upright on the stretcher in no acute distress. 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 No family is at bedside Neck/C-Spine: COMMON NORMALS: full ROM Resp: COMMON NORMALS: normal respiratory effort, No use of accessory muscles and clear to auscultation bilaterally AUSCULTATION: clear to auscultation bilaterally Cardio: COMMON NORMALS: regular rate RATE: regular rate GI: COMMON NORMALS: Soft to palpation PALPATION: Yes Soft to palpation, No Tenderness to palpation present (GI), No Guarding due to palpation present (GI) and No Rigid due to palpation Neuro: ZENAIDA COMA SCALE: document GCS findings [place] coma scale eye opening: Spontaneous Zenaida coma scale verbal response: Confused [place] coma scale motor response: Obey commands Zenaida coma scale total score: 14 SENSORIUM/ORIENTATION: Yes alert Psych: COMMON NORMALS: cooperative Course ED course: 1852: Notified by nurse of Na 117 and K 2.9 Vital Signs: Vital signs: Vital Signs Temperature 97.9 F 01/22/25 17:05 Pulse Rate 60 01/22/25 18:06 Respiratory Rate 18 01/22/25 18:06 Blood Pressure 186/84 01/22/25 18:06 Pulse Oximetry 98 01/22/25 19:19 Oxygen Delivery Me thod Room Air 01/22/25 17:05 MDM - Abdominal Pain Medical Decision Making 79yo female presents from the clinic for evaluation of hyponatremia. Patient reports her sodium and her creatinine were off. Patient does complain of abdominal pain and distention. States that she had been constipated, but drink some magnesium citrate and has had diarrhea since last night. Patient reports she has no family with her. Patient does seem to be somewhat confused, but does have bouts of clarity. Patient reports that she has no family in the area and that her son and daughter live in [place]. Patient's denies cough, congestion, vomiting, difficulty breathing, shortness of breath, chest pain, any other concerns at this time. Patient is nontoxic in appearance. Vital signs are stable. Differential diagnoses include but are not limited to: Constipation, small bowel obstruction, colitis, hyponatremia No leukocytosis or anemia noted. White blood cell count is 8.64 with a hemoglobin of 13.7. Acute hyponatremia with a sodium level of 117. Hypokalemia also noted with a potassium level of 2.9. UA is grossly unremarkable. CTAP obtained due to patient's complaints of abdominal pain. CT reveals mild colonic diverticulosis without diverticulitis with moderate retained colonic stool. No indication of a large or small bowel obstruction. Bladder is moderately distended. 2010: Discussed case with Dr. Mosley, hospitalist. Recommends 3% hypertonic saline 100 mL bolus and repeat sodium as well as 40 mill equivalents potassium IV. Admission to ICU. Discussed need for admission with patient. She is agreeable with plan. Medical Records Labs reviewed from clinic drawn on 01/22/2023. No leukocytosis, no anemia. Glucose 110, hyponatremia with sodium of 115, potassium 3.0, chloride 78.0. UA grossly unremarkable. Lab Data 01/22/25 18:00 01/22/25 18:00 Labs/Radiology: Radiology Impressions Abdomen/Pelvis CT 01/22/25 18:03 IMPRESSION: 1. No acute intra-abdominal or pelvic process. 2. Other nonemergent findings above. COMMENTS: Consistent with the [employer]'s Incidental Findings Committee white paper (J Am Elizabeth Radiol 2018): Any incidental renal lesion less than 1 cm or classified as too small to characterize, or any incidental cystic renal lesion characterized as simple-appearing, is likely benign. No follow-up imaging is recommended for these lesions per consensus recommendations based on imaging criteria. Laboratory Results WBC 8.64 10^3/uL (3.29-11.43) 01/22/25 18:00 RBC 4.52 10^6/uL (3.85-5.65) 01/22/25 18:00 Hgb 13.70 g/dL (11.27-16.99) 01/22/25 18:00 Hct 38.6 % (36-47) 01/22/25 18:00 MCV 85.4 fl (85-98) 01/22/25 18:00 MCH 30.3 pg (27-33) 01/22/25 18:00 MCHC 35.5 g/dL (30-55) 01/22/25 18:00 RDW 12.6 % (12.1-15.1) 01/22/25 18:00 Plt Count 370 10^3/cmm (157-399) 01/22/25 18:00 MPV 10.0 fL (7.4-10.4) 01/22/25 18:00 Neut % (Auto) 77.8 % 01/22/25 18:00 Lymph % (Auto) 11.3 % 01/22/25 18:00 [place] % (Auto) 9.0 % 01/22/25 18:00 Eos % (Auto) 0.8 % 01/22/25 18:00 Baso % (Auto) 0.5 % 01/22/25 18:00 Neut # (Auto) 6.72 10^3/uL (1.8-7.7) 01/22/25 18:00 Lymph # (Auto) 1.0 10^3/uL (0.8-4.8) 01/22/25 18:00 [place] # (Auto) 0.8 10^3/uL (0.2-0.9) 01/22/25 18:00 Eos # (Auto) 0.1 10^3/uL (0.0-0.8) 01/22/25 18:00 Baso # (Auto) 0.0 10^3/uL (0.0-0.1) 01/22/25 18:00 Nucleated RBC % (auto) 0 % 01/22/25 18:00 Nucleated RBCs # 0.0 /100WBC 01/22/25 18:00 Sodium 117 mmol/L (136-145) L* 01/22/25 18:00 Potassium 2.9 mmol/L (3.5-5.1) L 01/22/25 18:00 Chloride 76 mmol/L (98-107) L 01/22/25 18:00 Carbon Dioxide 26 mmol/L (22-29) 01/22/25 18:00 Anion Gap 17.9 (5-19) 01/22/25 18:00 BUN 9 mg/dL (8-23) 01/22/25 18:00 Creatinine 0.5 mg/dL (0.5-0.9) 01/22/25 18:00 GFR Calculation Not Reportable 01/22/25 18:00 Glucose 104 mg/dL (65-115) 01/22/25 18:00 Calculated Osmolality 243 mOsm/kg (285-295) L 01/22/25 18:00 Calcium 9.5 mg/dL (8.5-10.5) 01/22/25 18:00 Total Bilirubin 0.5 mg/dL (0.15-1.2) 01/22/25 18:00 AST 22 U/L (0-32) 01/22/25 18:00 ALT 22 U/L (0-33) 01/22/25 18:00 Alkaline Phosphatase 148 U/L (35-105) H 01/22/25 18:00 Total Protein 7.0 g/dL (6.6-8.7) 01/22/25 18:00 Albumin 4.1 g/dL (3.5-5.2) 01/22/25 18:00 Globulin 2.9 g/dL (1.3-4.6) 01/22/25 18:00 Lipase 16 U/L (13-60) 01/22/25 18:00 Urine Color Yellow (Yellow) 01/22/25 18:35 Urine Appearance Clear (CLEAR) 01/22/25 18:35 Urine pH 8.0 (5-7) A 01/22/25 18:35 Ur Specific [place] 1.004 (1.005-1.030) L 01/22/25 18:35 Urine Protein Negative (Negative) 01/22/25 18:35 Urine Glucose (UA) Negative (Normal) 01/22/25 18:35 Urine Ketones Trace (Negative) 01/22/25 18:35 Urine Blood Negative (Negative) 01/22/25 18:35 Urine Nitrate Negative (Negative) 01/22/25 18:35 Urine Bilirubin Negative (Negative) 01/22/25 18:35 Urine Urobilinogen 0.2 mg/dL (Negative) 01/22/25 18:35 Ur Leukocyte Esterase Negative (Negative) 01/22/25 18:35 Urine RBC 0-2 /hpf (0-2) 01/22/25 18:35 Urine WBC 0-5 /hpf (0-5) 01/22/25 18:35 Ur Squamous Epith Cells 0-5 /hpf (0-5) 01/22/25 18:35 Amorphous Sediment Not Reportable 01/22/25 18:35 Urine Bacteria None seen /hpf (NONE) 01/22/25 18:35 Hyaline Casts 0-4 /lpf H 01/22/25 18:35 Ur Random Sodium 27 mmol/L 01/22/25 18:35 All radiology interpretation(s) finalized by discharge Discharge Plan Discharge Patient Disposition: Admitted As Inpatient Clinical Impression: Acute hyponatremia, Hypokalemia, Acute constipation Condition: Stable Coding Level of Care Code ED Building Maintenance Repairer for Drew Prescott
[2025-01-22 18:28] LABS: Basophils % 0.5 %; Eosinophils # 0.1 10^3/uL (0.0-0.8); Eosinophils % 0.8 %; Hematocrit 38.6 % (36-47); Lymphocytes % 11.3 %; Mean Corpuscular HGB Conc 35.5 g/dL (30-55); Mean Corpuscular Hemoglobin 30.3 pg (27-33); Mean Corpuscular Volume 85.4 fl (85-98); Monocytes # 0.8 10^3/uL (0.2-0.9); Neutrophils # 6.72 10^3/uL (1.8-7.7); Neutrophils % 77.8 %; Nucleated Red Blood Cells % 0 %; Platelet Count 370 10^3/cmm (157-399); Red Blood Count 4.52 10^6/uL (3.85-5.65); Red Cell Distribution Width 12.6 % (12.1-15.1); White Blood Count 8.64 10^3/uL (3.29-11.43)
[2025-01-22 18:44] LABS: Alanine Aminotransferase 22 U/L (0-33); Albumin Level 4.1 g/dL (3.5-5.2); Alkaline Phosphatase 148 U/L (35-105); Anion Gap 17.9 (5-19); Aspartate Amino Transferase 22 U/L (0-32); Blood Urea Nitrogen 9 mg/dL (8-23); Calcium 9.5 mg/dL (8.5-10.5); Carbon Dioxide 26 mmol/L (22-29); Chloride 76 mmol/L (98-107); Globulin 2.9 g/dL (1.3-4.6); Glucose 104 mg/dL (65-115); Lipase 16 U/L (13-60); Osmolality Calculated 243 mOsm/kg (285-295); Total Bilirubin 0.5 mg/dL (0.15-1.2)
[2025-01-22 18:51] LABS: Sodium 117 mmol/L (136-145)
[2025-01-22 18:52] LABS: Potassium 2.9 mmol/L (3.5-5.1)
[2025-01-22] MEDS: iohexol 350 mg/mL 500 mL Btl (per mL) IV (18:54)
[2025-01-22 19:05] LABS: Bilirubin Urine Negative (Negative); Blood Urine Negative (Negative); Glucose Urine UA Negative (Normal); Ketones Urine Trace (Negative); Leukocyte Esterase Urine Negative (Negative); Nitrate Urine Negative (Negative); Protein Urine Negative (Negative); Specific Gravity, Urine 1.004 (1.005-1.030); Urine Appearance Clear (CLEAR); Urine Color Yellow (Yellow); Urobilinogen Urine 0.2 mg/dL (Negative)
[2025-01-22 19:09] LABS: Add Urine Microscopic? YES; Bacteria Urine None Seen /hpf; Hyaline Casts Urine 0-4 /lpf; RBC Urine 0-2 /hpf (0-2); Squamous Epithelial Cell Urine 0-5 /hpf (0-5); WBC Urine 0-5 /hpf (0-5)
[2025-01-22 19:15] LABS: Urine Random Sodium 27 mmol/L
[2025-01-22] MEDS: sodium chloride 3% 100 ML in empty flexible container 1 EACH 200 ML IV (20:52)
[2025-01-22] MEDS: lidocaine 1% 5 ML in potassium chloride premix 100 ML 26.25 ML IV (21:45)
--- NOTE | 2025-01-22 22:21 | PC.NURSE ---
Report called to AGUSTIN Linder in ICU. All questions and concerns were addressed at time of report.
--- NOTE | 2025-01-22 22:31 | PM.HP ---
Providers/Chief Complaint Admitting Physician: Jorge Gamez MD Primary Care Provider: Joana Randolph Chief Complaint: Agustín called, abd pain abnormal labs History of Present Illness Jana Rosa is a 79 year old female with past medical history of hypertension, fibromyalgia, chronic pain including chronic abdominal pain and chronic joint pain, long list of medication allergies and sensitivities. She has been managing her blood pressure medications as she feels she gets side effects from them, takes amlodipine 5 mg, chlorthalidone 25 mg daily, hydralazine 75 mg in the morning and evening and 50 mg in the afternoon. Presented from primary care clinic for abnormal labs low sodium and potassium. Patient is stating that she is extremely weak and lethargic. Patient lives alone, she really watches her diet, eats oatmeal in the day and then tuna and 1 piece of bread in the lunch tries to eat 2 meals a day and sometimes 3, she has multiple concerns related to food and medications. She is denying chest pain, fever, urinary frequency, syncopal event but endorsing weakness lethargy fatigue and extreme lack of energy. Patient is stating that previous colonoscopy did not show any cancerous lesions, for last 2 weeks she has been dealing with constipation, she took half a bottle of mag citrate in the next day she started experiencing profuse diarrhea, she became constipated again, last bowel movement was 7 days ago, she is not endorsing nausea or vomiting but endorsing abdominal bloating and discomfort. Patient is stating that she has been compliant with her medications. Sodium on presentation was 117, she was given 100 mg of hypertonic saline bolus repeat sodium is 122, patient endorsing feeling better no sign of seizure, patient is not confused endorsing fatigue and lethargy Potassium replenished, 80 mEq IV requested Mag level is normal CT scan abdomen pelvis showing no sign obstruction positive signs of constipation Review of Systems Const: Denies: fever(s) Eyes: Denies: change in vision ENMT: Denies: throat pain Card: Denies: chest pain Resp: Denies: dyspnea GI: Reports: abdominal pain and constipation; Denies: nausea : Denies: flank pain Musc: Reports: muscle cramps Neuro: Reports: weakness in extremities; Denies: headache(s) Medications/Allergies Home Medications ?Medication ?Instructions ?Recorded ?Confirmed ?Last Taken ?Type dicyclomine 10 mg capsule 10 mg PO BID 11/13/19 07/15/24 01/21/21 05:00 History mirtazapine 45 mg tablet 45 mg PO .HS 11/13/19 07/15/24 01/20/21 History montelukast 10 mg tablet 10 mg PO QDAY 11/13/19 07/15/24 Unknown History (Singulair) tramadol 50 mg tablet 50 mg PO TID PRN pain 11/13/19 07/15/24 01/20/21 History Held on 01/21/21. Instructions: Resume on 02/04/21. Hydrocodone or tramadol, not both. hyoscyamine sulfate 0.125 mg 0.125 mg PO QID PRN dyspepsia 03/09/20 07/15/24 01/21/21 05:00 History tablet (Levsin) COCK UP SPLINT #1 ea 02/07/21 07/15/24 Unknown Rx celecoxib 200 mg capsule (Celebrex) 200 mg PO DAILY #30 caps 02/23/21 07/15/24 Unknown Rx CMC brace #2 ea 04/27/21 07/15/24 Unknown Rx metaxalone 800 mg tablet 800 mg PO TID PRN Pain 30 days #60 05/26/21 07/15/24 Unknown Rx tabs gabapentin 100 mg capsule 100 mg PO DAILY 10/09/22 07/15/24 Unknown History hydralazine 25 mg tablet 25 mg PO DIRECTED #240 tabs 08/26/24 Unknown Rx atenolol 50 mg tablet See Rx Instructions .Route 09/01/24 Unknown Rx .COMPLEX #180 tabs chlorthalidone 25 mg tablet See Rx Instructions .Route 11/13/24 Unknown Rx .COMPLEX #90 tabs Allergies Allergy/AdvReac Type Severity Reaction Status Date / Time prochlorperazine (From Allergy Unknown Unknown Verified 10/16/23 12:59 Compazine) Tetracyclines Allergy Unknown Verified 10/16/23 12:59 PFSH Acute PFSH: Medical History (Updated 01/23/25 @ 00:02 by Rdoney Mosley MD) Dyslipidemia Fatigue Chronic pain Essential hypertension Fibromyalgia GERD (gastroesophageal reflux disease) Surgical History (Updated 01/23/25 @ 00:02 by Rodney Mosley MD) History of hip surgery Family History Father Diabetes Sister Diabetes Grandmother Diabetes PATERNAL Other CAD (coronary artery disease) Social History Smoking and tobacco/nicotine status: never used tobacco/nicotine Alcohol intake: never Substance/Drug Use: never Household members: family Marital status: / Vitals/I&O/Wt Last Vital Signs Temp 97.9 F 01/22/25 17:05 Pulse 61 01/22/25 22:22 Resp 18 01/22/25 18:06 BP 154/63 01/22/25 22:22 Pulse Ox 99 01/22/25 22:22 O2 Del Method Room Air 01/22/25 17:05 01/22/25 01/22/25 01/22/25 06:59 14:59 22:59 Intake Total 100 / 100 Balance 100 / 100 Weight last 48 hrs Weight 64.41 kg Physical Exam Narrative: Sarcopenia Currently in supine GCS 15 AOx4 NIH 0 S1: S2 Currently on room air Dehydrated Hypokalemia Abdomen slightly distended nontender Dose-limiting no edema Patient is hypertensive Currently on room air No active distress Data 01/22/25 18:00 01/22/25 22:15 A&P Assessment and plan (1) Essential hypertension: (2) Acute constipation: (3) Hypokalemia: (4) Fibromyalgia: (5) Chronic pain: (6) Fatigue: (7) Hyponatremia syndrome: Plan Hyponatremia Patient is hypokalemic Hypovolemic Recent diarrhea: Decreased p.o. intake, takes chlorthalidone, Hypertonic saline administered sodium 122, goal sodium replenishment 6 mEq in 24 hours I will start normal saline closer to morning labs around 3 AM, normal saline Check sodium level every 4 hours No active focal deficits, no signs of seizure Requested TSH, B12, osmolarity. Requested nephro consultation as well Constipation: Requested lactulose in the morning Patient has used mag citrate Stating colonoscopy in the past was unremarkable no cancerous lesions were noted CT abdomen pelvis did not show any sign obstruction: Stool burden noticed Hypertension: Patient is very fixated that her medication should not be changed however secondary to low sodium I will discontinue her chlorthalidone add lisinopril, amlodipine should be discontinued with constipation as well, added IV hydralazine, patient seems very particular and fixated on her medications Hypokalemia: Requested 80 meq IV potassium, magnesium normal Brat diet secondary to increased stool burden Full code DVT prophylaxis Lovenox Senna S added Lives alone, PDMP PDMP Reviewed: Not Reviewed Attestations Medical Necessity Statement*: Anticipating more than 2 midnights for management of hyponatremia, hypokalemia Diagnoses Essential hypertension I10 Acute constipation K59.00 Hypokalemia E87.6 Fibromyalgia M79.7 Chronic pain G89.29 Fatigue R53.83 Hyponatremia syndrome E87.1
--- NOTE | 2025-01-22 22:40 | PC.NURSE ---
Potassium Dr. Mosley at bedside; order received for 40 meq potassium chloride IV once to follow current dose administering.
[2025-01-22 22:42] LABS: Anion Gap 17.1 (5-19); Blood Urea Nitrogen 8 mg/dL (8-23); Calcium 9.3 mg/dL (8.5-10.5); Carbon Dioxide 27 mmol/L (22-29); Chloride 81 mmol/L (98-107); Glucose 104 mg/dL (65-115); Osmolality Calculated 253 mOsm/kg (285-295); Potassium 3.1 mmol/L (3.5-5.1); Sodium 122 mmol/L (136-145)
[2025-01-22 23:06] LABS: Thyroid Stimulating Hormone 1.95 uIU/mL (0.27-4.20)
[2025-01-23] VITALS (42 sets, daily range): BP systolic 120–184; BP diastolic 50–91; PULSE 58–72; RESP 11–19; TEMP 36.8–36.9; O2SAT 93–100
[2025-01-23] MEDS: enoxaparin 40 mg/0.4 mL Syringe SUBCUT ×2 (00:15→22:32)
[2025-01-23] MEDS: hyDRALAzine 20 mg/mL INJ 1 mL 10 MG IVP (00:23)
[2025-01-23 01:12] LABS: Potassium, Radom Urine 13 mmol/L; Urine Random Chloride 29 mmol/L; Urine Random Sodium 34 mmol/L
[2025-01-23 01:17] LABS: Creatinine Urine, Random 14 mg/dL (28-217); Microalbumin Random Urine 2 ug/dL (0-20)
[2025-01-23 01:18] LABS: Microalbum Creatinine Ratio Ur 143 mg/dL (0-20)
[2025-01-23] MEDS: lidocaine 1% 5 ML in potassium chloride premix 100 ML 26.25 ML IV (01:39)
[2025-01-23 02:17] LABS: Vitamin B12 > 2000 pg/mL (232-1245)
--- NOTE | 2025-01-23 02:51 | PM.CONSULT ---
Providers/Reason For Consult Consulting Physician/Specialty*: kommana/nephrology Reason for Consult*: Hyponatremia Attending Physician: Rodney Mosley MD Primary Care Provider: Joana Randolph History of Present Illness History of Present Illness Jana Kemi Moe is a 79 year old female Patient is 79-year-old female with past medical history of hypertension fibromyalgia was brought to the emergency department due to generalized weakness and also abdominal pain as well as abnormal labs. Patient takes chlorthalidone at home. Patient was seen at primary care doctor's office recently and noted to have low sodium and was sent to the emergency department. Patient received 100 cc of 3% saline bolus last night. Initial sodium was 117 improved to 123 this morning. Patient currently is awake alert and in no distress. Review of Systems Narrative: Other 12 point review of systems negative Medications/Allergies Home Medications ?Medication ?Instructions ?Recorded ?Confirmed ?Last Taken ?Type dicyclomine 10 mg capsule 10 mg PO BID 11/13/19 07/15/24 01/21/21 05:00 History mirtazapine 45 mg tablet 45 mg PO .HS 11/13/19 07/15/24 01/20/21 History montelukast 10 mg tablet 10 mg PO QDAY 11/13/19 07/15/24 Unknown History (Singulair) tramadol 50 mg tablet 50 mg PO TID PRN pain 11/13/19 07/15/24 01/20/21 History Held on 01/21/21. Instructions: Resume on 02/04/21. Hydrocodone or tramadol, not both. hyoscyamine sulfate 0.125 mg 0.125 mg PO QID PRN dyspepsia 03/09/20 07/15/24 01/21/21 05:00 History tablet (Levsin) COCK UP SPLINT #1 ea 02/07/21 07/15/24 Unknown Rx celecoxib 200 mg capsule (Celebrex) 200 mg PO DAILY #30 caps 02/23/21 07/15/24 Unknown Rx CMC brace #2 ea 04/27/21 07/15/24 Unknown Rx metaxalone 800 mg tablet 800 mg PO TID PRN Pain 30 days #60 05/26/21 07/15/24 Unknown Rx tabs gabapentin 100 mg capsule 100 mg PO DAILY 10/09/22 07/15/24 Unknown History hydralazine 25 mg tablet 25 mg PO DIRECTED #240 tabs 08/26/24 Unknown Rx atenolol 50 mg tablet See Rx Instructions .Route 09/01/24 Unknown Rx .COMPLEX #180 tabs chlorthalidone 25 mg tablet See Rx Instructions .Route 11/13/24 Unknown Rx .COMPLEX #90 tabs Allergies Allergy/AdvReac Type Severity Reaction Status Date / Time prochlorperazine (From Allergy Unknown Unknown Verified 10/16/23 12:59 Compazine) Tetracyclines Allergy Unknown Verified 10/16/23 12:59 Current Medications Generic Name Dose Route Start Last Admin Trade Name Freq PRN Reason Stop Dose Admin Enoxaparin Sodium 40 mg 01/22/25 23:15 01/23/25 00:15 Enoxaparin 40 Mg/0.4 Ml Syringe SUBCUT 40 mg Q24H INOCENTE Administration Hydralazine HCl 10 mg 01/23/25 00:04 01/23/25 00:23 Hydralazine 20 Mg/Ml Inj 1 Ml IVP 10 mg Q4H PRN Administration bp>180/100 Lidocaine HCl 5 ml/ Potassium 105 mls @ 26.25 mls/hr 01/23/25 02:00 01/23/25 01:39 Chloride IV 01/23/25 05:59 26.25 mls/hr ONCE ONE Administration PFSH Acute PFSH: Medical History (Updated 01/23/25 @ 08:48 by Sheryl Torres MD) Dyslipidemia Fatigue Chronic pain Essential hypertension Fibromyalgia GERD (gastroesophageal reflux disease) Surgical History (Updated 01/23/25 @ 00:02 by Rodney Mosley MD) History of hip surgery Family History Father Diabetes Sister Diabetes Grandmother Diabetes PATERNAL Other CAD (coronary artery disease) Social History Smoking and tobacco/nicotine status: never used tobacco/nicotine Alcohol intake: never Substance/Drug Use: never Household members: family Marital status: / Vitals/I&O/Wt Last Vital Signs Temp 97.6 F 01/22/25 22:50 Pulse 59 L 01/23/25 02:30 Resp 13 01/23/25 02:30 BP 129/58 01/23/25 02:30 Pulse Ox 96 01/23/25 02:30 O2 Del Method Room Air 01/22/25 23:01 01/22/25 01/22/25 01/23/25 14:59 22:59 06:59 Intake Total 100 / 100 105 / 205 Balance 100 / 100 105 / 205 Weight last 48 hrs Weight 67.5 kg Weight 64.41 kg Physical Exam Narrative: Patient is awake alert no distress PERRLA S1-S2 regular rate and rhythm per report Lungs clear per report Abdomen soft nontender and nondistended per report no pedal edema Data 01/22/25 18:00 01/23/25 07:12 A&P Assessment and plan (1) Hyponatremia: Plan 1. Hyponatremia: Acute on chronic, has low baseline sodium likely in the setting of chlorthalidone use and Remeron use, worsened now likely from poor oral intake. -Sodium appropriately has corrected, from 1 17-1 23 in the last 12 hours. Continue to monitor, placed on 1500 mL fluid restriction -Await urine sodium and urine osmolality results Patient evaluated using audiovisual cart. Time spent 40 minutes. PDMP PDMP Reviewed: Not Reviewed Consult Attestations Medical Necessity Statement: per michael Coding Level of Care Code Acute Code for Chg Fwd Diagnoses Hyponatremia E87.1
[2025-01-23 03:40] LABS: Anion Gap 14.8 (5-19); Blood Urea Nitrogen 9 mg/dL (8-23); Calcium 9.1 mg/dL (8.5-10.5); Carbon Dioxide 26 mmol/L (22-29); Chloride 86 mmol/L (98-107); Glucose 109 mg/dL (65-115); Magnesium 1.9 mg/dL (1.7-2.3); Osmolality Calculated 255 mOsm/kg (285-295); Potassium 3.8 mmol/L (3.5-5.1); Sodium 123 mmol/L (136-145)
--- NOTE | 2025-01-23 04:14 | PC.NURSE ---
Na level Dr. eRnteria contacted with patient sodium level of 123. Order received to discontinue NS maintenance fluid.
[2025-01-23 07:47] LABS: Anion Gap 15.8 (5-19); Blood Urea Nitrogen 9 mg/dL (8-23); Carbon Dioxide 24 mmol/L (22-29); Chloride 87 mmol/L (98-107); Glucose 92 mg/dL (65-115); Osmolality Calculated 254 mOsm/kg (285-295); Potassium 3.8 mmol/L (3.5-5.1); Sodium 123 mmol/L (136-145)
[2025-01-23] MEDS: sennosides-docusate Tablet 2 TAB PO ×2 (08:29→17:43)
[2025-01-23] MEDS: hyDRALAzine 25 mg Tablet PO ×3 (08:29→20:07)
[2025-01-23] MEDS: potassium chloride ER 20 mEq Tablet 40 MEQ PO (08:29)
[2025-01-23] MEDS: lactulose oral liq 20 gm/30 mL UDC PO (09:19)
--- NOTE | 2025-01-23 09:40 | PC.SOCIAL ---
IMM Update pg 2 of IMM Updated and reviewed w/ patient. Copy provided and copy dated, initialed and placed in chart.
--- NOTE | 2025-01-23 10:47 | PC.SOCIAL ---
IMM Update Pg 2 of IMM updated and copy provided to patient.
[2025-01-23 11:23] LABS: Anion Gap 15.7 (5-19); Blood Urea Nitrogen 11 mg/dL (8-23); Calcium 9.4 mg/dL (8.5-10.5); Carbon Dioxide 25 mmol/L (22-29); Chloride 86 mmol/L (98-107); Glucose 120 mg/dL (65-115); Osmolality Calculated 257 mOsm/kg (285-295); Potassium 3.7 mmol/L (3.5-5.1); Sodium 123 mmol/L (136-145)
--- NOTE | 2025-01-23 12:50 | PM.PN ---
Subjective Subjective: 79-year-old female with history of hypertension, fibromyalgia, and chronic pain who presented with severe hyponatremia (Na 117), hypokalemia (K 2.9), and symptoms of weakness and lethargy. Patient reports recent constipation followed by profuse diarrhea after taking magnesium citrate, with no bowel movement for 7 days prior to presentation. She has been self-managing her antihypertensive regimen and maintains a restricted diet. Initial treatment with hypertonic saline 100 ml x 1 improved sodium to 122, with further improvement to 123 overnight, and IV potassium supplementation. Patient complained of some abdominal soreness however did note constipation. She also requested Protonix due to reflux. Has not had any complaint of cheat pain or dyspnea. Medications: Reviewed: Yes Vitals/I&O/Wt Last Vital Signs Temp 98.2 F 01/23/25 06:15 Pulse 63 01/23/25 12:00 Resp 16 01/23/25 12:00 BP 136/75 01/23/25 12:00 Pulse Ox 93 01/23/25 12:00 O2 Del Method Room Air 01/23/25 12:00 01/22/25 01/23/25 01/23/25 22:59 06:59 14:59 Intake Total 100 / 100 210 / 310 236 / 236 Output Total 350 / 350 Balance 100 / 100 210 / 310 -114 / -114 Weight last 48 hrs Weight 60.5 kg Weight 67.5 kg Weight 64.41 kg Physical Exam Narrative: Alert, awake, NAD HEENT: Grossly unremarkable CVS: RRR Chest : CTABL Abdomen: Soft, NT, ND Ext; No edema Data 01/22/25 18:00 01/23/25 10:46 A&P Assessment and plan (1) Essential hypertension: (2) Acute constipation: (3) Hypokalemia: (4) Fibromyalgia: (5) Chronic pain: (6) Fatigue: (7) Hyponatremia syndrome: Plan Severe Hyponatremia (Na 117) likely multifactorial, with contributing factors including thiazide diuretic use, also on remeron, possible poor oral intake, and recent diarrhea following magnesium citrate. Urine studies (urine Na 27, specific gravity 1.004) suggest component of dilutional hyponatremia?. Nephrology was consulted. Plan: Continue cautious correction of sodium Discontinue chlorthalidone Fluid restriction to 1-1.5 L/day Hypokalemia Severe hypokalemia (K 2.9) likely due to thiazide diuretic use, poor intake, and gastrointestinal losses from diarrhea. Plan: Continue IV potassium replacement as needed Discontinue chlorthalidone Constipation Moderate retained colonic stool on CT with no bowel movement for 7 days. Patient reports alternating constipation and diarrhea. Plan: Gentle bowel regimen with polyethylene glycol 17g daily PRN Was given Lactulose today Increase dietary fiber gradually as tolerated Hypertension Currently on multiple antihypertensives with self-adjustment due to perceived side effects. Plan: Hold chlorthalidone indefinitely due to severe hyponatremia Continue lisinopril 20 mg daily Continue hydralazine Ok to transfer to [facility]. PDMP PDMP Reviewed: Not Reviewed Attestations Medical Necessity Statement*: Anticipating more than 2 midnights for management of hyponatremia, hypokalemia Coding Level of Care Code Acute Code for Chg Fwd Diagnoses Essential hypertension I10 Acute constipation K59.00 Hypokalemia E87.6 Fibromyalgia M79.7 Chronic pain G89.29 Fatigue R53.83 Hyponatremia syndrome E87.1
[2025-01-23 15:19] LABS: Blood Urea Nitrogen 13 mg/dL (8-23); Calcium 9.4 mg/dL (8.5-10.5); Carbon Dioxide 26 mmol/L (22-29); Chloride 84 mmol/L (98-107); Glucose 103 mg/dL (65-115); Osmolality Calculated 252 mOsm/kg (285-295); Sodium 121 mmol/L (136-145)
[2025-01-23 15:24] LABS: Anion Gap 15.2 (5-19); Potassium 4.2 mmol/L (3.5-5.1)
[2025-01-23] MEDS: sodium chloride 1 gm Tablet PO ×2 (16:09→20:07)
[2025-01-23] MEDS: montelukast sodium 10 mg Tablet PO (16:09)
[2025-01-23] MEDS: acetaminophen 500 mg Tablet PO ×2 (16:58→21:17)
[2025-01-23 19:22] LABS: Anion Gap 17.6 (5-19); Blood Urea Nitrogen 13 mg/dL (8-23); Calcium 9.4 mg/dL (8.5-10.5); Carbon Dioxide 22 mmol/L (22-29); Chloride 87 mmol/L (98-107); Glucose 129 mg/dL (65-115); Osmolality Calculated 256 mOsm/kg (285-295); Potassium 4.6 mmol/L (3.5-5.1); Sodium 122 mmol/L (136-145)
[2025-01-23 23:01] LABS: Anion Gap 17.4 (5-19); Blood Urea Nitrogen 12 mg/dL (8-23); Calcium 9.4 mg/dL (8.5-10.5); Carbon Dioxide 22 mmol/L (22-29); Chloride 86 mmol/L (98-107); Glucose 105 mg/dL (65-115); Magnesium 1.9 mg/dL (1.7-2.3); Osmolality Calculated 252 mOsm/kg (285-295); Potassium 4.4 mmol/L (3.5-5.1); Sodium 121 mmol/L (136-145)
[2025-01-23] MEDS: methocarbamol 500 mg Tablet PO (23:02)
[2025-01-24] VITALS (8 sets, daily range): BP systolic 121–166; BP diastolic 56–68; PULSE 56–72; RESP 16–18; TEMP 36.4–36.7; O2SAT 95–98
[2025-01-24] MEDS: acetaminophen 500 mg Tablet PO ×3 (03:58→18:08)
[2025-01-24] MEDS: lisinopril 10 mg Tablet 20 MG PO (08:14)
[2025-01-24] MEDS: sennosides-docusate Tablet 2 TAB PO ×2 (08:15→18:07)
[2025-01-24] MEDS: potassium chloride ER 20 mEq Tablet 40 MEQ PO (08:15)
[2025-01-24] MEDS: hyDRALAzine 25 mg Tablet PO ×3 (08:15→19:59)
[2025-01-24] MEDS: pantoprazole DR 40 mg Tablet PO (08:15)
[2025-01-24] MEDS: montelukast sodium 10 mg Tablet PO (08:16)
[2025-01-24] MEDS: sodium chloride 1 gm Tablet PO ×3 (08:17→19:59)
--- NOTE | 2025-01-24 08:55 | PC.PHAR ---
Pt states she was given rx for Celebrex 200mg bid but is used to taking Robaxin 500 mg tid and would rather go back to taking it.
[2025-01-24 09:15] LABS: Basophils # 0.1 10^3/uL (0.0-0.1); Basophils % 1.2 %; Eosinophils # 0.1 10^3/uL (0.0-0.8); Eosinophils % 1.6 %; Hematocrit 39.2 % (36-47); Lymphocytes # 0.8 10^3/uL (0.8-4.8); Lymphocytes % 14.7 %; Mean Corpuscular HGB Conc 33.7 g/dL (30-55); Mean Corpuscular Hemoglobin 30.6 pg (27-33); Mean Platelet Volume 9.6 fL (7.4-10.4); Monocytes # 0.6 10^3/uL (0.2-0.9); Monocytes % 9.6 %; Neutrophils # 4.16 10^3/uL (1.8-7.7); Neutrophils % 72.7 %; Nucleated Red Blood Cells % 0 %; Platelet Count 343 10^3/cmm (157-399); Red Blood Count 4.31 10^6/uL (3.85-5.65); Red Cell Distribution Width 13.2 % (12.1-15.1); White Blood Count 5.72 10^3/uL (3.29-11.43)
[2025-01-24] MEDS: lidocaine 5% Patch 1 PATCH TOPICAL ×2 (12:40→20:49)
[2025-01-24] MEDS: TRAMadol 50 mg Tablet PO ×2 (12:45→19:59)
--- NOTE | 2025-01-24 13:06 | P.PN_ITS ---
Subjective 2 Subjective: 79-year-old female with history of hyper tension, fibromyalgia, and chronic pain who presented with severe hyponatremia (Na 117), hypokalemia (K 2.9), and symptoms of weakness and lethargy. Patient reports recent constipation followed by profuse diarrhea after taking magnesium citrate, with no bowel movement for 7 days prior to presentation. She has been self-managing her antihypertensive regimen and maintains a restricted diet. Initial treatment with hypertonic saline 100 ml x 1 improved sodium to 122, with further improvement to 123 overnight, and IV potassium supplementation. Patient complained of some abdominal soreness however did note constipation. She also requested Protonix due to reflux. Has not had any complaint of cheat pain or dyspnea. Patient is really anxious overnight she had been complaining of back pain. She dated that she takes Robaxin at home which was restarted. She is requesting additional pain medication. She has not been very compliant with her fluid restriction. She has not had any fevers, chills, nausea, or vomiting. She is stating that she feels weak. Lives at home alone and at this time want to consider possible custodial facility at discharge. Medications: Reviewed: Yes Vitals/I&O/Wt Last Vital Signs Temp 97.8 F 01/24/25 07:48 Pulse 63 01/24/25 08:10 Resp 18 01/24/25 08:10 BP 150/61 01/24/25 07:48 Pulse Ox 98 01/24/25 08:10 O2 Del Method Room Air 01/24/25 08:10 01/23/25 01/24/25 01/24/25 22:59 06:59 14:59 Intake Total 996 / 1232 120 / 120 Balance 996 / 882 120 / 120 Weight last 48 hrs Weight 65.68 kg Weight 60.5 kg Weight 67.5 kg Weight 64.41 kg Physical Exam 2 Narrative: Alert, awake, NAD HEENT: Grossly unremarkable CVS: RRR Chest : CTABL Abdomen: Soft, NT, ND Ext; No edema Data 01/24/25 09:08 01/23/25 22:38 A&P Assessment and plan (1) Essential hypertension: (2) Acute constipation: (3) Hypokalemia: (4) Fibromyalgia: (5) Chronic pain: (6) Fatigue: (7) Hyponatremia syndrome: Plan Severe Hyponatremia (Na 117) likely multifactorial, with contributing factors including thiazide diuretic use, also on remeron, possible poor oral intake, and recent diarrhea following magnesium citrate. Sodium levels initially improved however now have decreased to 121. - Nephrology on board Plan: Continue to trend BMPs as ordered Discontinue chlorthalidone Fluid restriction to 1-1.5 L/day Hypokalemia?resolved Severe hypokalemia (K 2.9) likely due to thiazide diuretic use, poor intake, and gastrointestinal losses from diarrhea. Potassium 4.4 today Plan: Continue potassium replacement as needed Discontinue chlorthalidone Constipation Moderate retained colonic stool on CT with no bowel movement for 7 days. Patient reports alternating constipation and diarrhea. Plan: Gentle bowel regimen with polyethylene glycol 17g daily PRN Continue bowel regimen Hypertension Currently on multiple antihypertensives with self-adjustment due to perceived side effects. Plan: Hold chlorthalidone indefinitely due to severe hyponatremia Continue lisinopril 20 mg daily Continue hydralazine Chronic back pain Physical therapy was consulted. Plan: Will order lidocaine patch and tramadol as needed. Ok to transfer to [facility]. PDMP PDMP Reviewed: Not Reviewed Attestations 2 Medical Necessity Statement*: Anticipating more than 2 midnights for management of hyponatremia, hypokalemia Coding Level of Care Code Acute Code for Chg Fwd Diagnoses Essential hypertension I10 Acute constipation K59.00 Hypokalemia E87.6 Fibromyalgia M79.7 Chronic pain G89.29 Fatigue R53.83 Hyponatremia syndrome E87.1
--- NOTE | 2025-01-24 13:50 | P.PN_ITS ---
Subjective 2 Subjective: no new complants Medications: Reviewed: Yes Vitals/I&O/Wt Last Vital Signs Temp 97.8 F 01/24/25 07:48 Pulse 63 01/24/25 08:10 Resp 18 01/24/25 08:10 BP 150/61 01/24/25 07:48 Pulse Ox 98 01/24/25 08:10 O2 Del Method Room Air 01/24/25 08:10 01/23/25 01/24/25 01/24/25 22:59 06:59 14:59 Intake Total 996 / 1232 120 / 120 Balance 996 / 882 120 / 120 Weight last 48 hrs Weight 65.68 kg Weight 60.5 kg Weight 67.5 kg Weight 64.41 kg Physical Exam 2 Narrative: Patient is awake alert no distress PERRLA S1-S2 regular rate and rhythm per report Lungs clear per report Abdomen soft nontender and nondistended per report no pedal edema Data 01/24/25 09:08 01/23/25 22:38 A&P Assessment and plan (1) Hyponatremia: Plan 1. Hyponatremia: Acute on chronic, has low baseline sodium likely in the setting of chlorthalidone use and Remeron use, worsened now likely from poor oral intake. - on salt tabs and fluid restriction 1200 ml/day -awaiting urine osmolality -lost iv access , pt refused new access - awaiting BMP today and check BMP q 4 h Patient evaluated using audiovisual cart. Time spent 40 minutes. PDMP PDMP Reviewed: Not Reviewed Attestations 2 Medical Necessity Statement*: per michael Coding Level of Care Code Acute Code for Chg Fwd Diagnoses Hyponatremia E87.1
[2025-01-24 14:51] LABS: Anion Gap 13.5 (5-19); Blood Urea Nitrogen 10 mg/dL (8-23); Calcium 9.2 mg/dL (8.5-10.5); Carbon Dioxide 26 mmol/L (22-29); Chloride 90 mmol/L (98-107); Glucose 146 mg/dL (65-115); Osmolality Calculated 262 mOsm/kg (285-295); Potassium 4.5 mmol/L (3.5-5.1); Sodium 125 mmol/L (136-145)
[2025-01-24] MEDS: enoxaparin 40 mg/0.4 mL Syringe SUBCUT (22:50)
[2025-01-25] VITALS (9 sets, daily range): BP systolic 131–160; BP diastolic 56–77; PULSE 56–79; RESP 16–17; TEMP 36.4–36.8; O2SAT 95–98
[2025-01-25] MEDS: TRAMadol 50 mg Tablet PO ×3 (03:06→18:28)
[2025-01-25 05:27] LABS: Basophils # 0.1 10^3/uL (0.0-0.1); Basophils % 1.3 %; Eosinophils # 0.2 10^3/uL (0.0-0.8); Eosinophils % 2.9 %; Hematocrit 37.9 % (36-47); Lymphocytes # 1.4 10^3/uL (0.8-4.8); Lymphocytes % 22.5 %; Mean Corpuscular HGB Conc 33.5 g/dL (30-55); Mean Corpuscular Hemoglobin 30.5 pg (27-33); Mean Corpuscular Volume 91.1 fl (85-98); Mean Platelet Volume 10.1 fL (7.4-10.4); Monocytes # 0.7 10^3/uL (0.2-0.9); Monocytes % 11.3 %; Neutrophils # 3.86 10^3/uL (1.8-7.7); Neutrophils % 61.5 %; Nucleated Red Blood Cells % 0 %; Platelet Count 333 10^3/cmm (157-399); Red Blood Count 4.16 10^6/uL (3.85-5.65); Red Cell Distribution Width 13.2 % (12.1-15.1); White Blood Count 6.27 10^3/uL (3.29-11.43)
[2025-01-25 05:47] LABS: Anion Gap 15.3 (5-19); Blood Urea Nitrogen 9 mg/dL (8-23); Calcium 9.1 mg/dL (8.5-10.5); Carbon Dioxide 22 mmol/L (22-29); Chloride 93 mmol/L (98-107); Glucose 104 mg/dL (65-115); Osmolality Calculated 261 mOsm/kg (285-295); Potassium 4.3 mmol/L (3.5-5.1); Sodium 126 mmol/L (136-145)
[2025-01-25] MEDS: lidocaine 5% Patch 1 PATCH TOPICAL ×2 (09:07→20:45)
[2025-01-25] MEDS: lisinopril 20 mg Tablet PO (09:08)
[2025-01-25] MEDS: potassium chloride ER 20 mEq Tablet 40 MEQ PO (09:08)
[2025-01-25] MEDS: sodium chloride 1 gm Tablet PO ×3 (09:09→20:11)
[2025-01-25] MEDS: montelukast sodium 10 mg Tablet PO (09:09)
[2025-01-25] MEDS: acetaminophen 500 mg Tablet PO ×3 (09:09→20:11)
[2025-01-25] MEDS: pantoprazole DR 40 mg Tablet PO (09:09)
[2025-01-25] MEDS: sennosides-docusate Tablet 2 TAB PO ×2 (09:09→18:29)
[2025-01-25] MEDS: hyDRALAzine 25 mg Tablet PO ×3 (09:10→20:11)
--- NOTE | 2025-01-25 09:18 | P.PN_ITS ---
Subjective 2 Subjective: no new complaints Medications: Reviewed: Yes Vitals/I&O/Wt Last Vital Signs Temp 97.5 F L 01/25/25 07:52 Pulse 65 01/25/25 09:15 Resp 16 01/25/25 09:15 BP 131/75 01/25/25 07:52 Pulse Ox 96 01/25/25 09:15 O2 Del Method Room Air 01/25/25 09:15 01/24/25 01/25/25 01/25/25 22:59 06:59 14:59 Intake Total 240 / 240 Balance 240 / 240 Weight last 48 hrs Weight 65.408 kg Weight 65.68 kg Physical Exam 2 Narrative: Patient is awake alert no distress PERRLA S1-S2 regular rate and rhythm per report Lungs clear per report Abdomen soft nontender and nondistended per report no pedal edema Data 01/25/25 04:50 01/25/25 04:50 A&P Assessment and plan (1) Hyponatremia: Plan 1. Hyponatremia: Acute on chronic, has low baseline sodium likely in the setting of chlorthalidone use and Remeron use, worsened now likely from poor oral intake - on salt tabs and fluid restriction 1200 ml/day -awaiting urine osmolality -Na improved to 126 , Monitor -BMp q 12 hours Patient evaluated using audiovisual cart. Time spent 40 minutes. PDMP PDMP Reviewed: Not Reviewed Attestations 2 Medical Necessity Statement*: per michael Coding Level of Care Code Acute Code for Chg Fwd Diagnoses Hyponatremia E87.1
[2025-01-25] MEDS: artificial tears Op Soln 15 mL Btl 1 DROP EYE-BOTH (10:57)
[2025-01-25] MEDS: simethicone 80 mg Chew PO (10:58)
--- NOTE | 2025-01-25 12:32 | PM.PN ---
Subjective Subjective: 79-year-old female with history of hypertension, fibromyalgia, and chronic pain who presented with severe hyponatremia (Na 117), hypokalemia (K 2.9), and symptoms of weakness and lethargy. Patient reports recent constipation followed by profuse diarrhea after taking magnesium citrate, with no bowel movement for 7 days prior to presentation. She has been self-managing her antihypertensive regimen and maintains a restricted diet. Initial treatment with hypertonic saline 100 ml x 1 improved sodium to 122, with further improvement to 123 overnight, and IV potassium supplementation. Patient complained of some abdominal soreness however did note constipation. She also requested Protonix due to reflux. Has not had any complaint of cheat pain or dyspnea. Patient is really anxious overnight she had been complaining of back pain. She dated that she takes Robaxin at home which was restarted. She is requesting additional pain medication. She has not been very compliant with her fluid restriction. She has not had any fevers, chills, nausea, or vomiting. She is stating that she feels weak. Lives at home alone and at this time want to consider possible penitentiary facility at discharge. 01/25 Patient stated that she has been having abdominal bloating overnight. She has not had a bowel movement since 2 days and feels she is constipated. Has not had any nausea or vomiting. No fever, chills. Medications: Reviewed: Yes Vitals/I&O/Wt Last Vital Signs Temp 97.6 F 01/25/25 11:16 Pulse 57 L 01/25/25 11:16 Resp 17 01/25/25 11:16 BP 143/77 01/25/25 11:16 Pulse Ox 97 01/25/25 11:16 O2 Del Method Room Air 01/25/25 11:16 01/24/25 01/25/25 01/25/25 22:59 06:59 14:59 Intake Total 240 / 240 Balance 240 / 240 Weight last 48 hrs Weight 65.408 kg Weight 65.68 kg Physical Exam Narrative: Alert, awake, NAD HEENT: Grossly unremarkable CVS: RRR Chest : CTABL Abdomen: Soft, NT, ND Ext; No edema Data 01/25/25 04:50 01/25/25 04:50 A&P Assessment and plan (1) Essential hypertension: (2) Acute constipation: (3) Hypokalemia: (4) Fibromyalgia: (5) Chronic pain: (6) Fatigue: (7) Hyponatremia syndrome: Plan Severe Hyponatremia - improving (Na 117) likely multifactorial, with contributing factors including thiazide diuretic use, also on remeron, possible poor oral intake, and recent diarrhea following magnesium citrate. Sodium levels initially improved however then decreased to 121. Patient was started on sodium tablets yesterday. Sodium is improved to 125 today. Nephrology is on board and assisting. - Nephrology on board Plan: Continue to trend BMPs every 12 hours. Discontinue chlorthalidone, also holding mirtazapine Fluid restriction to 1-1.5 L/day Hypokalemia?resolved Severe hypokalemia (K 2.9) likely due to thiazide diuretic use, poor intake, and gastrointestinal losses from diarrhea. Plan: Continue potassium replacement as needed Discontinue chlorthalidone Constipation Moderate retained colonic stool on CT with no bowel movement for 7 days. Patient reports alternating constipation and diarrhea. Plan: Gentle bowel regimen with polyethylene glycol 17g daily PRN Added simethicone Will also add Colace 100 mg twice a day Will continue to escalate bowel regimen. Hypertension Currently on multiple antihypertensives with self-adjustment due to perceived side effects. Plan: Hold chlorthalidone indefinitely due to severe hyponatremia Continue lisinopril 20 mg daily Continue hydralazine Chronic back pain Physical therapy was consulted. Plan: Will order lidocaine patch and tramadol as needed. Disposition [facility] [place]. Medically stable for discharge once arranged. PDMP PDMP Reviewed: Not Reviewed Attestations Medical Necessity Statement*: Anticipating more than 2 midnights for management of hyponatremia, hypokalemia Coding Level of Care Code Acute Code for Chg Fwd Diagnoses Essential hypertension I10 Acute constipation K59.00 Hypokalemia E87.6 Fibromyalgia M79.7 Chronic pain G89.29 Fatigue R53.83 Hyponatremia syndrome E87.1
[2025-01-25] MEDS: polyethylene glycol 3350 Pkt 17 gm PO (14:23)
[2025-01-25 20:48] LABS: Glucose Point of Care 124 mg/dL (70-110)
[2025-01-25] MEDS: enoxaparin 40 mg/0.4 mL Syringe SUBCUT (22:19)
[2025-01-26] MEDS: TRAMadol 50 mg Tablet PO ×3 (00:23→13:52)
[2025-01-26 03:49] VITALS: BP 146/77; PULSE 77; RESP 16; TEMP 36.8; O2SAT 96
[2025-01-26 05:38] VITALS: PULSE 62
[2025-01-26 06:48] LABS: Glucose Point of Care 102 mg/dL (70-110)
[2025-01-26 07:55] VITALS: BP 172/72; PULSE 64; RESP 17; TEMP 37.1; O2SAT 94
[2025-01-26 08:09] LABS: Anion Gap 15.5 (5-19); Blood Urea Nitrogen 7 mg/dL (8-23); Calcium 9.3 mg/dL (8.5-10.5); Carbon Dioxide 24 mmol/L (22-29); Chloride 90 mmol/L (98-107); Creatinine Clr Calc Pharmacy 51.4807; Glucose 108 mg/dL (65-115); Osmolality Calculated 259 mOsm/kg (285-295); Potassium 4.5 mmol/L (3.5-5.1); Sodium 125 mmol/L (136-145)
[2025-01-26] MEDS: montelukast sodium 10 mg Tablet PO (08:44)
[2025-01-26] MEDS: sennosides-docusate Tablet 2 TAB PO (08:44)
[2025-01-26] MEDS: lisinopril 20 mg Tablet PO (08:44)
[2025-01-26] MEDS: polyethylene glycol 3350 Pkt 17 gm PO (08:44)
[2025-01-26] MEDS: potassium chloride ER 20 mEq Tablet 40 MEQ PO (08:44)
[2025-01-26] MEDS: sodium chloride 1 gm Tablet PO (08:44)
[2025-01-26] MEDS: hyDRALAzine 25 mg Tablet PO ×2 (08:44→14:17)
[2025-01-26] MEDS: pantoprazole DR 40 mg Tablet PO (08:44)
[2025-01-26] MEDS: lidocaine 5% Patch 1 PATCH TOPICAL (08:45)
[2025-01-26 09:30] VITALS: PULSE 64; RESP 18; O2SAT 94
--- NOTE | 2025-01-26 10:42 | P.DS_ITS ---
Discharge Providers Date of Admission: 01/22/25 20:58 Date of Discharge: January 26, 2025 Attending Provider at Admission: Jorge Gamez MD Attending Provider at Discharge: Geovanny Meyer Primary Care Provider: Joana Randolph Diagnoses at Discharge Discharge Diagnosis (1) Hyponatremia: Status: Acute Reason for Visit Reason for Visit: Agustín called, abd pain abnormal labs Discharge Data Studies Completed and Pending Completed Studies During Hospitalization Category Date Time Status CT abdomen pelvis w con* [id number] Stat Cat Scan 01/22/25 18:03 Completed Pending at discharge Category Date Time Status Osmolality Serum Routine Lab 01/23/25 00:03 Received Osmolality Urine Stat Lab 01/22/25 18:35 Received Radiology Impressions Abdomen/Pelvis CT 01/22/25 18:03 IMPRESSION: 1. No acute intra-abdominal or pelvic process. 2. Other nonemergent findings above. COMMENTS: Consistent with the [employer]'s Incidental Findings Committee white paper (J Am Elizabeth Radiol 2018): Any incidental renal lesion less than 1 cm or classified as too small to characterize, or any incidental cystic renal lesion characterized as simple-appearing, is likely benign. No follow-up imaging is recommended for these lesions per consensus recommendations based on imaging criteria. Laboratory Results WBC 6.27 10^3/uL (3.29-11.43) 01/25/25 04:50 RBC 4.16 10^6/uL (3.85-5.65) 01/25/25 04:50 Hgb 12.70 g/dL (11.27-16.99) 01/25/25 04:50 Hct 37.9 % (36-47) 01/25/25 04:50 MCV 91.1 fl (85-98) 01/25/25 04:50 MCH 30.5 pg (27-33) 01/25/25 04:50 MCHC 33.5 g/dL (30-55) 01/25/25 04:50 RDW 13.2 % (12.1-15.1) 01/25/25 04:50 Plt Count 333 10^3/cmm (157-399) 01/25/25 04:50 MPV 10.1 fL (7.4-10.4) 01/25/25 04:50 Neut % (Auto) 61.5 % 01/25/25 04:50 Lymph % (Auto) 22.5 % 01/25/25 04:50 [place] % (Auto) 11.3 % 01/25/25 04:50 Eos % (Auto) 2.9 % 01/25/25 04:50 Baso % (Auto) 1.3 % 01/25/25 04:50 Neut # (Auto) 3.86 10^3/uL (1.8-7.7) 01/25/25 04:50 Lymph # (Auto) 1.4 10^3/uL (0.8-4.8) 01/25/25 04:50 [place] # (Auto) 0.7 10^3/uL (0.2-0.9) 01/25/25 04:50 Eos # (Auto) 0.2 10^3/uL (0.0-0.8) 01/25/25 04:50 Baso # (Auto) 0.1 10^3/uL (0.0-0.1) 01/25/25 04:50 Nucleated RBC % (auto) 0 % 01/25/25 04:50 Nucleated RBCs # 0.0 /100WBC 01/25/25 04:50 Sodium 125 mmol/L (136-145) L 01/26/25 07:45 Potassium 4.5 mmol/L (3.5-5.1) 01/26/25 07:45 Chloride 90 mmol/L (98-107) L 01/26/25 07:45 Carbon Dioxide 24 mmol/L (22-29) 01/26/25 07:45 Anion Gap 15.5 (5-19) 01/26/25 07:45 BUN 7 mg/dL (8-23) L 01/26/25 07:45 Creatinine 0.7 mg/dL (0.5-0.9) 01/26/25 07:45 GFR Calculation Not Reportable 01/26/25 07:45 Glucose 108 mg/dL (65-115) 01/26/25 07:45 POC Glucose 102 mg/dL (70-110) 01/26/25 06:43 Calculated Osmolality 259 mOsm/kg (285-295) L 01/26/25 07:45 Calcium 9.3 mg/dL (8.5-10.5) 01/26/25 07:45 Magnesium 1.9 mg/dL (1.7-2.3) 01/23/25 22:38 Total Bilirubin 0.5 mg/dL (0.15-1.2) 01/22/25 18:00 AST 22 U/L (0-32) 01/22/25 18:00 ALT 22 U/L (0-33) 01/22/25 18:00 Alkaline Phosphatase 148 U/L (35-105) H 01/22/25 18:00 Total Protein 7.0 g/dL (6.6-8.7) 01/22/25 18:00 Albumin 4.1 g/dL (3.5-5.2) 01/22/25 18:00 Globulin 2.9 g/dL (1.3-4.6) 01/22/25 18:00 Lipase 16 U/L (13-60) 01/22/25 18:00 Vitamin B12 > 2000 pg/mL (232-1245) H 01/22/25 22:15 TSH 1.95 uIU/mL (0.27-4.20) 01/22/25 22:15 Urine Color Yellow (Yellow) 01/22/25 18:35 Urine Appearance Clear (CLEAR) 01/22/25 18:35 Urine pH 8.0 (5-7) A 01/22/25 18:35 Ur Specific [place] 1.004 (1.005-1.030) L 01/22/25 18:35 Urine Protein Negative (Negative) 01/22/25 18:35 Urine Glucose (UA) Negative (Normal) 01/22/25 18:35 Urine Ketones Trace (Negative) 01/22/25 18:35 Urine Blood Negative (Negative) 01/22/25 18:35 Urine Nitrate Negative (Negative) 01/22/25 18:35 Urine Bilirubin Negative (Negative) 01/22/25 18:35 Urine Urobilinogen 0.2 mg/dL (Negative) 01/22/25 18:35 Ur Leukocyte Esterase Negative (Negative) 01/22/25 18:35 Urine RBC 0-2 /hpf (0-2) 01/22/25 18:35 Urine WBC 0-5 /hpf (0-5) 01/22/25 18:35 Ur Squamous Epith Cells 0-5 /hpf (0-5) 01/22/25 18:35 Amorphous Sediment Not Reportable 01/22/25 18:35 Urine Bacteria None seen /hpf (NONE) 01/22/25 18:35 Hyaline Casts 0-4 /lpf H 01/22/25 18:35 Ur Random Microalbumin 2 ug/dL (0-20) 01/23/25 00:44 Ur Random Sodium 34 mmol/L 01/23/25 00:44 Ur Random Potassium 13 mmol/L 01/23/25 00:44 Ur Random Chloride 29 mmol/L 01/23/25 00:44 Urine Creatinine 14 mg/dL (28-217) L 01/23/25 00:44 Microalb/Creat Ratio 143 mg/dL (0-20) H 01/23/25 00:44 Vitals Last Vital Signs Temp 98.7 F 01/26/25 07:55 Pulse 64 01/26/25 09:30 Resp 18 01/26/25 09:30 BP 172/72 01/26/25 07:55 Pulse Ox 94 01/26/25 09:30 O2 Del Method Room Air 01/26/25 09:30 Discharge Plan Discharge Patient Disposition: Home Condition: Stable Prescriptions: No Action mirtazapine 45 mg tablet 45 mg PO BEDTIME Celebrex 200 mg capsule 200 mg PO DAILY Qty: 30 0RF (DME) [facility] brace See Rx Instructions .Route .MEDSUPPLY Qty: 2 0RF Rx Instructions: As directed (DME) COCK UP SPLINT See Rx Instructions .Route .MEDSUPPLY Qty: 1 0RF Rx Instructions: As directed hydralazine 25 mg tablet 25 mg PO DIRECTED Qty: 240 5RF Rx Instructions: Take 3 tabs in the morning, 2 tabs in the evening, and 3 tabs at bedtime. atenolol 50 mg tablet See Rx Instructions .ROUTE .COMPLEX Qty: 180 3RF Dose Instruction: TAKE ONE TABLET BY MOUTH TWICE DAILY Rx Instructions: TAKE ONE TABLET BY MOUTH TWICE DAILY chlorthalidone 25 mg tablet See Rx Instructions .ROUTE .COMPLEX Qty: 90 3RF Dose Instruction: TAKE ONE TABLET BY MOUTH DAILY Rx Instructions: TAKE ONE TABLET BY MOUTH DAILY acetaminophen [Tylenol Arthritis] 650 mg Tablet Extended Release 650 mg PO Q12H Referrals: Joana Randolph PA [Primary Care Provider] - Patient Instructions: Opioid Safety Coding Level of Care Code Acute Code for Chg Fwd Diagnoses Hyponatremia E87.1
--- NOTE | 2025-01-26 10:45 | P.PN_ITS ---
Subjective 2 Subjective: no new complaints Medications: Reviewed: Yes Vitals/I&O/Wt Last Vital Signs Temp 98.7 F 01/26/25 07:55 Pulse 64 01/26/25 09:30 Resp 18 01/26/25 09:30 BP 172/72 01/26/25 07:55 Pulse Ox 94 01/26/25 09:30 O2 Del Method Room Air 01/26/25 09:30 01/25/25 01/26/25 01/26/25 22:59 06:59 14:59 Intake Total 240 / 720 120 / 120 Balance 240 / 720 120 / 120 Weight last 48 hrs Weight 65.771 kg Weight 65.408 kg Physical Exam 2 Narrative: Patient is awake alert no distress PERRLA S1-S2 regular rate and rhythm per report Lungs clear per report Abdomen soft nontender and nondistended per report no pedal edema Data 01/25/25 04:50 01/26/25 07:45 A&P Assessment and plan (1) Hyponatremia: Plan 1. Hyponatremia: Acute on chronic, has low baseline sodium likely in the setting of chlorthalidone use and Remeron use, worsened now likely from poor oral intake - on salt tabs- increase to 2gm TID , and fluid restriction 1200 ml/day -awaiting urine osmolality -Na improved to 125 , Monitor -BMp q 12 hours Patient evaluated using audiovisual cart. Time spent 40 minutes. PDMP PDMP Reviewed: Not Reviewed Attestations 2 Medical Necessity Statement*: per michael Coding Level of Care Code Acute Code for [facility] Fwd Diagnoses Hyponatremia E87.1
[2025-01-26 11:13] VITALS: BP 169/71; PULSE 69; RESP 18; TEMP 36.7; O2SAT 96
--- NOTE | 2025-01-26 12:21 | PC.SOCIAL ---
IMM updated Updated pt on IMM. No questions voiced. Provided pt a copy. Initialed, dated, & timed copy in chart.
[2025-01-26 13:26] LABS: Anion Gap 14.3 (5-19); Blood Urea Nitrogen 7 mg/dL (8-23); Calcium 9.3 mg/dL (8.5-10.5); Carbon Dioxide 26 mmol/L (22-29); Chloride 89 mmol/L (98-107); Creatinine Clr Calc Pharmacy 51.4807; Glucose 124 mg/dL (65-115); Osmolality Calculated 259 mOsm/kg (285-295); Potassium 4.3 mmol/L (3.5-5.1); Sodium 125 mmol/L (136-145)
[2025-01-26] MEDS: sodium chloride 1 gm Tablet 2 GM PO (14:17)
[2025-01-26 15:15] VITALS: BP 169/71; PULSE 69; RESP 18; TEMP 36.7; O2SAT 96
[2025-01-26 16:13] LABS: Osmolality Urine 138 mOsm/kg (50-1200)
[2025-01-28 14:51] LABS: Osmolality Serum 243 mOsm/kg (278-305)
== END 2025-01-26 15:18 | disposition home health service (06) | DRG 641 ==
LOC: ER 20:43 → ICU 20:59 → MEDSURG 01-23 19:57
PROVIDERS: Emergency Medicine; Hospitalist; Internal Medicine; Admitting Provider Family Medicine; Emergency Provider Nurse Practitioner; PCP Physician Assistant; Visit Provider Hospitalist
DX: E87.1 Hypo-osmolality and hyponatremia (principal); K59.00 Constipation, unspecified; E78.5 Hyperlipidemia, unspecified; G89.29 Other chronic pain; I10 Essential (primary) hypertension; M79.7 Fibromyalgia; K21.9 Gastro-esophageal reflux disease without esophagitis; E87.6 Hypokalemia; M62.84 Sarcopenia; E86.0 Dehydration; R53.83 Other fatigue; E86.1 Hypovolemia; M54.9 Dorsalgia, unspecified; Z79.1 Long term (current) use of non-steroidal anti-inflammatories (NSAID); Z79.899 Other long term (current) drug therapy; Z88.1 Allergy status to other antibiotic agents; Z88.8 Allergy status to other drugs, medicaments and biological substances; Z83.3 Family history of diabetes mellitus; Z82.49 Family history of ischemic heart disease and other diseases of the circulatory system; Z98.890 Other specified postprocedural states
CPT/HCPCS: 36415; 36416; 74177; 80048; 80053; 81001; 82044; 82436; 82607; 82962; 83690; 83735; 83930; 83935; 84133; 84300; 84443; 85025; 96365; 96366; 96372; 97116; 97161; 97530; 99285; J0360; J1650; J3480; J7131; J9999; Q3014

== ENCOUNTER 2025-03-27 10:43 | Outpatient (CLI) | payer MEDICARE, BC, SELFPAY ==
--- NOTE | 2025-03-27 10:46 | MR_ITS ---
WS: [id number] MRI LUMBAR SPINE NONCONTRAST TECHNIQUE: Sagittal T1, T2 and STIR imaging. Axial T1 and T2 imaging. CLINICAL INFORMATION: SPINAL STENOSIS LUMBAR COMPARISON: CT lumbar 2016 FINDINGS: Mild lumbar curve. Acute to subacute appearing compression fracture T12 with anterior wedging. Loss of approximately 40 to 50% vertebral body height centrally. Minimal retropulsion with slight effacement of the ventral thecal sac. Associated edema in the endplates. No other recent appearing compression fractures. Mild spondylitic changes cervical spine. Mild central canal stenosis C3-C6 on the dairy clerk imaging. L1-L2: Disc osteophyte complex with mild central canal stenosis. Narrowing of the subarticular recess. Moderate facet arthropathy. Mild LEFT greater than RIGHT foraminal narrowing. L2-L3: Slight retrolisthesis. Disc osteophyte complex with mild central canal stenosis. Impingement of the subarticular recess. Moderate facet arthropathy. Moderate LEFT and mild RIGHT foraminal narrowing. L3-L4: Central disc protrusion with annular fissure. Severe central canal stenosis. Small LEFT synovial cyst contributes to stenosis. Moderate facet arthropathy. L4-L5: Mild annular bulging. Moderate central canal stenosis. Moderate facet arthropathy. Mild bilateral foraminal narrowing. L5-S1: LEFT eccentric disc bulging impinges the exiting LEFT L5 nerve root. Moderate LEFT foraminal narrowing. RIGHT foramen is patent. Impingement of traversing LEFT S1 nerve root. Moderate facet arthropathy. Visualized pelvic bony structures: Normal. Paravertebral soft tissues: Normal. Small LEFT renal cyst. Tarlov cysts in the sacrum. MR/MR lumbar spine wo con* [id number] IMPRESSION: 1. Compression fracture with anterior wedging at T12 with endplate edema priyank tible with recent acute to subacute compression. Loss of approximately 40 to 50 % vertebral body height centrally. Minimal retropulsion with slight effacement of the ventral thecal sac. 2. Severe central canal stenosis L3-4. Small LEFT synovial cyst at this level contributes to stenosis. 3. Moderate central canal stenosis L4-5. 4. Mild central canal stenosis L1-2 and L2-3.
== END 2025-03-27 10:44 | disposition home or self-care (01) ==
PROVIDERS: PCP Physician Assistant; Visit Provider Physician Assistant
DX: M48.062 Spinal stenosis, lumbar region with neurogenic claudication (principal); S22.080A Wedge compression fracture of T11-T12 vertebra, initial encounter for closed fracture; X58.XXXA Exposure to other specified factors, initial encounter; M71.38 Other bursal cyst, other site; M43.8X6 Other specified deforming dorsopathies, lumbar region; M47.892 Other spondylosis, cervical region; M48.02 Spinal stenosis, cervical region; M25.78 Osteophyte, vertebrae; M47.896 Other spondylosis, lumbar region; M51.26 Other intervertebral disc displacement, lumbar region; R93.7 Abnormal findings on diagnostic imaging of other parts of musculoskeletal system; M51.369 Other intervertebral disc degeneration, lumbar region without mention of lumbar back pain or lower extremity pain; M51.379 Other intervertebral disc degeneration, lumbosacral region without mention of lumbar back pain or lower extremity pain; M48.07 Spinal stenosis, lumbosacral region; M47.897 Other spondylosis, lumbosacral region; N28.1 Cyst of kidney, acquired; G96.191 Perineural cyst; I10 Essential (primary) hypertension; E78.5 Hyperlipidemia, unspecified
CPT/HCPCS: 72148; 99214

== ENCOUNTER → 2025-04-20 12:44 | Outpatient (BNVA) | payer MEDICARE, BC, SELFPAY | PROVIDERS: PCP Physician Assistant; Referring Provider Physician Assistant; Visit Provider Anesthesiology Pain Medicine | DX: M79.10 Myalgia, unspecified site (principal); M48.062 Spinal stenosis, lumbar region with neurogenic claudication; S22.000A Wedge compression fracture of unspecified thoracic vertebra, initial encounter for closed fracture; X58.XXXA Exposure to other specified factors, initial encounter | CPT/HCPCS: 20553; 99204; J1010; J3490 ==

== ENCOUNTER → 2025-05-04 13:11 | Outpatient (BNVA) | payer MEDICARE, BC, SELFPAY | PROVIDERS: PCP Physician Assistant; Visit Provider Anesthesiology Pain Medicine | DX: M48.062 Spinal stenosis, lumbar region with neurogenic claudication (principal); S22.000D Wedge compression fracture of unspecified thoracic vertebra, subsequent encounter for fracture with routine healing; X58.XXXD Exposure to other specified factors, subsequent encounter | CPT/HCPCS: 99214 ==

== ENCOUNTER → 2025-05-06 13:47 | Outpatient (BNVA) | payer MEDICARE, BC, SELFPAY | PROVIDERS: PCP Physician Assistant; Visit Provider Anesthesiology Pain Medicine | DX: M54.16 Radiculopathy, lumbar region (principal); M48.062 Spinal stenosis, lumbar region with neurogenic claudication | CPT/HCPCS: 64483; 64484; J1100; J3490; J9999 ==

== ENCOUNTER → 2025-05-18 13:49 | Outpatient (BNVA) | payer MEDICARE, BC, SELFPAY | PROVIDERS: PCP Physician Assistant; Visit Provider Anesthesiology Pain Medicine | DX: M48.062 Spinal stenosis, lumbar region with neurogenic claudication (principal); S22.000D Wedge compression fracture of unspecified thoracic vertebra, subsequent encounter for fracture with routine healing; X58.XXXD Exposure to other specified factors, subsequent encounter | CPT/HCPCS: 99214 ==

== ENCOUNTER → 2025-06-18 12:45 | Outpatient (BNVA) | payer MEDICARE, BC, SELFPAY | PROVIDERS: PCP Physician Assistant; Visit Provider Dermatology | DX: L21.8 Other seborrheic dermatitis (principal); L30.4 Erythema intertrigo; S00.86XA Insect bite (nonvenomous) of other part of head, initial encounter; X58.XXXA Exposure to other specified factors, initial encounter; L82.1 Other seborrheic keratosis; F42.4 Excoriation (skin-picking) disorder; L81.4 Other melanin hyperpigmentation | CPT/HCPCS: 99204 ==

== ENCOUNTER → 2025-07-06 12:35 | Outpatient (BNVA) | payer MEDICARE, BC, SELFPAY | PROVIDERS: PCP Physician Assistant; Visit Provider Anesthesiology Pain Medicine | DX: M48.062 Spinal stenosis, lumbar region with neurogenic claudication (principal); S22.080D Wedge compression fracture of T11-T12 vertebra, subsequent encounter for fracture with routine healing; X58.XXXD Exposure to other specified factors, subsequent encounter | CPT/HCPCS: 99214 ==

== ENCOUNTER → 2025-07-13 13:32 | Outpatient (BNVA) | payer MEDICARE, BC, SELFPAY | PROVIDERS: PCP Physician Assistant; Visit Provider Anesthesiology Pain Medicine | DX: M79.18 Myalgia, other site (principal); M48.062 Spinal stenosis, lumbar region with neurogenic claudication | CPT/HCPCS: 20553; 99214; J1010; J3490 ==

== ENCOUNTER → 2025-07-21 11:04 | Outpatient (BNVA) | payer MEDICARE, BC, SELFPAY | PROVIDERS: PCP Physician Assistant; Visit Provider Dermatology | DX: L30.4 Erythema intertrigo (principal); L21.8 Other seborrheic dermatitis | CPT/HCPCS: 99214 ==

== ENCOUNTER → 2025-10-12 10:32 | Outpatient (BNVA) | payer MEDICARE, BC, SELFPAY | PROVIDERS: PCP Physician Assistant; Visit Provider Dermatology | DX: L30.4 Erythema intertrigo (principal); L21.8 Other seborrheic dermatitis; D69.2 Other nonthrombocytopenic purpura | CPT/HCPCS: 99214 ==